=== PATIENT | male | born 1980 | race Caucasian/White ===

== ENCOUNTER → 2016-06-28 | Outpatient (CLI) | payer BC, OTHER ==
[~2016-06-28] VITALS: Ht 198.1 cm; Wt 85.3 kg
[~2016-06-28] MED LIST: ACETAMINOPHEN325 M1 PO; AMBIEN 5 MG TABL5 M1 PO; AMITRIPTYLINE H10 M1 PO; AMITRIPTYLINE H25 M3 PO; COUMADIN 1MG TAB1 M1 PO; COUMADIN 2.5MG2.5 M1 PO; COUMADIN 5 MG TA5 M1 PO; DILAUDID 2 MG TA2 MG PO; DILAUDID 4 MG TA4 M1 PO; ELAVIL PO; ENOXAPARIN100 MG/1 M SUBQ; GENTAMICIN 0.1%15 G2 TOP; IBUPROFEN 800800 M1 PO; JANTOVEN2.5 MG PO; LYRICA 75 MG CA75 MG PO; METHADONE HCL5 MG PO; MULTIVITAMINS PO; NABUMETONE 750750 M1 PO; NOHOMEMEDICATIONS; NORCO 5-325 TA1 EACH PO; NUCYNTA ER100 MG PO; NUCYNTA ER150 MG PO; NUCYNTA ER200 MG PO; NUCYNTA ER250 MG PO; NUCYNTA100 MG PO; NUCYNTA50 MG PO; NUCYNTA75 MG PO; OMEPRAZOLE40 MG PO; OXCARBAZEPINE300 M1 PO; OXYC PO; OXYCOD PO; OXYCODONE PO; OXYCONTIN15 MG PO; PERCOCET 10-321 EACH PO; PERCOCET 5-3251 EACH PO; PERCOCET 7.5-31 EAC1 PO; PERCOCET 7.5-31 EACH PO; PERCOCET PO; RELAFEN750 MG PO; SANTYL OINTMENT30 G1 TP; TRAMADOL 50 MG50 MG PO; TRAZODONE 150150 M1 PO; TRILEPTAL 300300 MG PO; TRILEPTAL150 MG PO; VOLTAREN GEL 1100 G1 TOP; VOLTAREN GEL 1100 G2 TOP; VOLTAREN100 GM TP; WELLBUTRIN XL300 MG PO; XANAX 0.5 MG0.5 M1 PO; XARELTO20 MG PO; ZPAK PO; [UNRECOGNIZED DRUG - OTHER]; [UNRECOGNIZED DRUG - OTHER]; trazadone PO
--- NOTE | ~2016-06-28 | HPC ---
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 He is now about 8 months status post a fairly extensive, definitive surgery at to cover this area. He notes he has healed generally well, though he still has an area with some thin skin that occasionally will start to bleed. He has been able to participate in activities of daily living, he does keep the dressings on the left knee, but he goes to rock climbing twice a week, does treadmill, perhaps 4-5 days a week. He has weaned off of oxycodone, which was fairly low, used 5 mg tablet, averaging 30 in a month. Continued to take 5 mg of methadone b.i.d. and Trileptal 300 mg b.i.d., but using a little topical Voltaren gel p.r.n. Today, he tells me pain is actually fairly well controlled. Rates it at 2/10. Again, primarily in bilateral legs, back, neck, and left knee. PHYSICAL EXAMINATION: Unchanged. A 36-year-old gentleman, BMI is 21.7 kilograms per meter squared. Vital signs are stable as noted in the EMR. Rises from the chair easily. Gait is actually fairly tandem at this point. Again, he has dressing on the left knee. I did not take that down. We reviewed the fact that opiate medications are being used to provide analgesia adequate to support activities of daily living, not attempting to achieve a specific pain score on the 0-10 Visual Analog Scale. The current opiate medications are providing sufficient analgesia to allow the patient to participate in activities of daily living. The patient is not exhibiting any aberrant behavior suggestive of drug diversion. The patient is not having any adverse reactions to medications. The patient is not suffering from daytime somnolence or mental acuity changes. The patient is managing opiate-induced constipation with appropriate hbtn-rny-cdwhwry agents and dietary considerations. The patient was counseled on concern for caution with operating a motor vehicle while using opiate medications. A physical exam was performed and the patient's functional status was evaluated. All patients with back pain were advised against the bed rest greater than 4 days and were advised to return to normal activities. Pain score assessment was noted and the treatment plan was reviewed with the patient. All current medications, both prescribed and OTC were reviewed and reconciled on the electronic medical record. Tobacco screening was accomplished and smoking cessation was advised when indicated. BMI was noted and diet/exercise [address] [address] PAIN MANAGEMENT CONSULTATION Name: NELLY GUTIÉRREZ Room #: REG [place]#: [id number] Admission: 06/28/16 Attend Phys: Kedar Pichardo DO Discharge: Date of : 82 Report #: [id number] modification was recommended for all patients following outside normal parameters. I reviewed with the patient today their responsibilities to safeguard prescription medications, reviewed their responsibility to utilize medications only as prescribed by the physician. They are to seek and receive pain medications only from 1 physician group ( [facility]). They are to use 1 pharmacy and keep the clinic informed if they change pharmacies. Their responsibilities include making followup visits in a timely fashion and to avoid abrupt discontinuation of medication usage. Their responsibilities further include bringing their medications (bottles from the pharmacy with residual pills) to the visit for possible confirmation of pill counts and the patient understands it is their responsibility to submit to random drug screens to ensure both that the medications prescribed are present, and that no other controlled substances are present. All prescriptions provided today were generated electronically. ASSESSMENT: Neuropathic pain, secondary to Ujgimdd-Zashdrrvy-Pahtk syndrome, status post multiple surgical reconstructions with a fairly definitive surgery about 8 months ago to diminish the capillary malformation and cover the knee with skin. He has been stable on methadone 5 mg b.i.d., has weaned off of oxycodone. Today, we talked at length about trying to wean methadone as well. We have elected to continue a prescription for 60 methadone 5 mg tablets to use b.i.d. Since he notes his pain is a little better during the day, as he is busy and is able to distract himself. We have elected to trial using half a tablet in the morning with one at night for about 30 days. If he does well with this, in hopes of a "slow" successful wean, we may even go another second month on half in the morning and one at night and on months #3, we drop to one half tablet b.i.d. I have taken the liberty of writing for 3 months of current medication. His last urine drug screen at last visit, 03/05/2016, was positive for prescribed medications. The patient was discharged in good and stable condition. <ELECTRONICALLY SIGNED> By: Kedar Pichardo DO 07/02/16 0811 [id number] 54 Kedar Pichardo DO /sp
[2016-06-28 09:42] VITALS: BP 155/88
== END | disposition home or self-care (01) ==
LOC: PAIN 07:01
DX: Q87.2 Congenital malformation syndromes predominantly involving limbs (principal)

== ENCOUNTER → 2016-09-16 | Outpatient (CLI) | payer BC, OTHER ==
[~2016-09-16] VITALS: Ht 198.1 cm; Wt 83.9 kg
[~2016-09-16] MED LIST changes: +LYRICA 50 MG50 MG PO
--- NOTE | ~2016-09-16 | HPC ---
[facility] [place] [address] PAIN MANAGEMENT CONSULTATION Name: MARLANELLY M Room #: REG José [facility] [place]#: [id number] Admission: 09/16/16 Attend Phys: Kedar Pichardo DO Discharge: Date of : 82 Report #: [id number] THIS REPORT FOR: //name// CC: [facility] physician/PCP Kedar Pichardo The patient is a very pleasant 36-year-old gentleman well known to the pain clinic, being treated for chronic pain syndrome, left knee. History of "Nhpsdmq-Nbgyoelcj-Nfdef syndrome with capillary malformation of left knee requiring multiple surgeries. Last surgery is now about 1 year out from . This last surgery appears to be definitive. He is healed fairly well. Still has some areas that will occasionally bleed, but he remains quite physically active. Used the dressings on the knee p.r.n. He does rock climbing, works on a treadmill. He returns to pain clinic today. He had weaned off of oxycodone last visit. He was on methadone 5 mg b.i.d., tried to wean down, but one tablet a day had increased pain. No signs or symptoms of opiate withdrawal, simply increasing pain. Again, he returns to pain clinic. He remains quite active. 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 He enjoys rock climbing. He has multiple avocations. He notes chronic pain, burning sensation in the left knee remains problematic, seems to be exacerbated with some activities. PHYSICAL EXAMINATION: Shows a 36-year-old gentleman, BMI is 21.4 kilograms per meter squared. Vital signs stable as noted in the EMR. Alert and oriented to person, place and time, judged to be a reasonable historian. Rises from chair easily. Gait is tandem. Pretty good range of motion of the left knee with flexion to 110 degrees. Skin integument generally intact. The patient did bring in for us today lab results from his most recent physical exam, 06/22/2016. I personally reviewed these studies and compared them to a prior exam from 06/25/2015. He had had an elevated SGPT in 2016. SGPT today is within normal limits. Given use of a sodium channel membrane stabilizing agent (oxcarbazepine), I did want to review his CVA which is normal. There is no evidence of bone marrow suppression. BUN and creatinine are within normal limits at 17 and 0.79 respectively. Does have an elevated alkaline phos on his most recent study. It is 129, just a little over the high standard (reference rate is 30-115), 2016 alk phos was 113. I suspect this is likely coming from the left knee. He does have chronic inflammation. 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 No signs of any other liver issues or other finding suggestive of viral hepatitis. We reviewed the fact that opiate medications are being used to provide analgesia adequate to support activities of daily living, not attempting to achieve a specific pain score on the 0-10 Visual Analog Scale. The current opiate medications are providing sufficient analgesia to allow the patient to participate in activities of daily living. The patient is not exhibiting any [address] [address] PAIN MANAGEMENT CONSULTATION Name: MARLANELLY M Room #: REG CLJosé Miguel [place]#: [id number] Admission: 09/16/16 Attend Phys: Kedar Pichardo DO Discharge: Date of : 82 Report #: [id number] aberrant behavior suggestive of drug diversion. The patient is not having any adverse reactions to medications. The patient is not suffering from daytime somnolence or mental acuity changes. The patient is managing opiate-induced constipation with appropriate oyxr-bbh-dgvbqlb agents and dietary considerations. The patient was counseled on concern for caution with operating a motor vehicle while using opiate medications. A physical exam was performed and the patient's functional status was evaluated. All patients with back pain were advised against the bed rest greater than 4 days and were advised to return to normal activities. Pain score assessment was noted and the treatment plan was reviewed with the patient. All current medications, both prescribed and OTC were reviewed and reconciled on the electronic medical record. Tobacco screening was accomplished and smoking cessation was advised when indicated. BMI was noted and diet/exercise modification was recommended for all patients following outside normal parameters. I reviewed with the patient today their responsibilities to safeguard prescription medications, reviewed their responsibility to utilize medications only as prescribed by the physician. They are to seek and receive pain medications only from 1 physician group ( [facility]). They are to use 1 pharmacy and keep the clinic informed if they change pharmacies. Their responsibilities include making followup visits in a timely fashion and to avoid abrupt discontinuation of medication usage. Their responsibilities further include bringing their medications (bottles from the pharmacy with residual pills) to the visit for possible confirmation of pill counts and the patient understands it is their responsibility to submit to random drug screens to ensure both that the medications prescribed are present, and that no other controlled substances are present. All prescriptions provided today were generated electronically. ASSESSMENT: Chronic knee pain (left knee) secondary to Lgxgijx-Kxhhtjnzw-Ytupi syndrome with multiple surgeries, requiring complex medication management, neuropathic pain component. Pain has a burning electric quality. Last urine drug screen was positive for prescribed medications. RECOMMENDATION: 1. Continue methadone 5 mg b.i.d., try and wean as able, continue sodium channel membrane stabilizing agent, oxcarbazepine 300 mg b.i.d. I have taken the liberty of giving the patient samples of Lyrica 50 mg once a day to start at night. If this affords synergistic relief of neuropathic pain with the oxcarbazepine, I have also provided him prescription for Lyrica 50 mg 1-2 tablets at bedtime, 60 tablets with 2 refills. He has in the past failed gabapentin due to cognitive impairment and swelling of lower extremity. 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 Dispensed 120 g with 6 refills. This prescription was sent to the start pharmacy for formulation. The patient was discharged in good and stable condition after prolonged visit, seen from approximately 14:23 to 14:50. Greater than 50% of this 25+ minute visit was spent counseling the patient. <ELECTRONICALLY SIGNED> By: Kedar Pichardo DO 09/17/16 0704 1535 0312 Kedar Pichardo DO /nt
[2016-09-16 14:22] VITALS: BP 133/75
== END ==
LOC: PAIN 07:12
DX: G89.4 Chronic pain syndrome (principal); Q87.2 Congenital malformation syndromes predominantly involving limbs

== ENCOUNTER → 2016-12-13 | Outpatient (CLI) | payer BC, OTHER ==
[~2016-12-13] VITALS: Ht 198.1 cm; Wt 83.5 kg
[2016-12-13 08:07] VITALS: BP 132/66
== END | disposition home or self-care (01) ==
LOC: PAIN 06:32
DX: M25.562 Pain in left knee (principal); G89.29 Other chronic pain; Q87.2 Congenital malformation syndromes predominantly involving limbs; F11.20 Opioid dependence, uncomplicated; Z98.890 Other specified postprocedural states; Z88.2 Allergy status to sulfonamides

== ENCOUNTER → 2017-02-24 | Outpatient (CLI) | payer BC, OTHER ==
[~2017-02-24] VITALS: Ht 198.1 cm; Wt 84.8 kg
--- NOTE | ~2017-02-24 | HPC ---
[facility] [place] [address] [place] [address] PAIN MANAGEMENT CONSULTATION Name: NELLY GUTIÉRREZ Room #: REG [facility] [place].#: [id number] Admission: 02/24/17 Attend Phys: Kedar Pichardo DO Discharge: Date of : 82 Report #: [id number] THIS REPORT FOR: //name// CC: [facility] physician/PCP Kedar Pichardo This patient is a very pleasant 36-year-old gentleman, being treated for Wcmfxmu-Pfzxkchir-Guxmo syndrome affecting left knee, left knee chronic pain, neuropathic component, requiring high-risk complex medication management. Last seen in pain clinic on 12/13/2016, continued on methadone 5 mg b.i.d. We added Nucynta 50 mg p.r.n. pain, 100 tablets for 90 days. Continue Trileptal 300 mg b.i.d. Last urine drug screen on 03/05/2016 was positive for prescribed medications. He returns to pain clinic today noting medications are providing sufficient analgesia to participate in activities of daily living. He has continued to do rock climbing and bicycling. Notes pain is generally controlled, thinks that the Nucynta helps with p.r.n. pain. PHYSICAL EXAMINATION: Shows pleasant 36-year-old gentleman, BMI is 21.6 kilograms per meter squared. Vital signs stable as noted in the EMR. Rises from chair easily. Gait is tandem. Nominally antalgic favoring the left leg, has not had any bleeding in that left knee now for nearly a year. We reviewed the fact that opiate medications are being used to provide analgesia adequate to support activities of daily living, not attempting to achieve a specific pain score on the 0-10 Visual Analog Scale. The current opiate medications are providing sufficient analgesia to allow the patient to participate in activities of daily living. The patient is not exhibiting any aberrant behavior suggestive of drug diversion. The patient is not having any adverse reactions to medications. The patient is not suffering from daytime somnolence or mental acuity changes. The patient is managing opiate-induced constipation with appropriate uhoc-vnj-uurvqfs agents and dietary considerations. The patient was counseled on concern for caution with operating a motor vehicle while using opiate medications. A physical exam was performed and the patient's functional status was evaluated. All patients with back pain were advised against the bed rest greater than 4 days and were advised to return to normal activities. Pain score assessment was noted and the treatment plan was reviewed with the patient. All current medications, both prescribed and OTC were reviewed and reconciled on the electronic medical record. Tobacco screening was accomplished and smoking cessation was advised when indicated. BMI was noted and diet/exercise modification was recommended for all patients [place] [address] PAIN MANAGEMENT CONSULTATION Name: NELLY GUTIÉRREZ Room #: REG ILIANA [place]#: [id number] Admission: 02/24/17 Attend Phys: Kedar Pichardo DO Discharge: Date of : 82 Report #: [id number] I reviewed with the patient today their responsibilities to safeguard prescription medications, reviewed their responsibility to utilize medications only as prescribed by the physician. They are to seek and receive pain medications only from 1 physician group ([facility]). They are to use 1 pharmacy and keep the clinic informed if they change pharmacies. Their responsibilities include making followup visits in a timely fashion and to avoid abrupt discontinuation of medication usage. Their responsibilities further include bringing their medications (bottles from the pharmacy with residual pills) to the visit for possible confirmation of pill counts and the patient understands it is their responsibility to submit to random drug screens to ensure both that the medications prescribed are present, and that no other controlled substances are present. All prescriptions provided today were generated electronically. ASSESSMENT: Chronic pain syndrome, neuropathic pain component, left knee, status post multiple surgeries because of Ueytcdc-Rpqparyml-Mdjqp venous malformation, stable on baseline medications presently. RECOMMENDATION: Continue methadone 5 mg b.i.d., Trileptal, unchanged 300 mg b.i.d. and continue Nucynta 50 mg 1 tablet p.r.n. pain q.4-6 hours., limit 100 tablets for 90 days. I have taken the liberty of writing for 3 months of methadone and a single Nucynta prescription. Follow up in 3 months for reevaluation, earlier if needed. <ELECTRONICALLY SIGNED> By: Kedar Pichardo DO 02/25/17 1036 1234 1022 Kedar Pichardo DO /nt
[2017-02-24 09:51] VITALS: BP 123/79
== END | disposition home or self-care (01) ==
LOC: PAIN 06:28
DX: G89.4 Chronic pain syndrome (principal); G62.9 Polyneuropathy, unspecified; Z98.890 Other specified postprocedural states; Q87.2 Congenital malformation syndromes predominantly involving limbs; Z79.899 Other long term (current) drug therapy

== ENCOUNTER → 2017-05-19 | Outpatient (CLI) | payer BC, OTHER ==
[~2017-05-19] VITALS: Ht 198.1 cm; Wt 83.9 kg
--- NOTE | ~2017-05-19 | HPC ---
[facility] [place] [address] PAIN MANAGEMENT CONSULTATION Name: GUTIÉRREZNELLY M [facility] #: [facility] [id number] Admission: 05/19/17 Attend Phys: Kedar Pichardo DO Discharge: Date of : 82 Report #: [id number] THIS REPORT FOR: //name// CC: [facility] physician/PCP Kedar Pichardo PAIN CLINIC NOTE HISTORY OF PRESENT ILLNESS: The patient is a very pleasant 37-year-old gentleman long known to the pain clinic, being treated for chronic left knee pain, history of Hhxdrtw-Ldkexenrz-Gaiqu syndrome. He has ongoing neuropathic pain, chronic pain syndrome requiring high risk complex medication management. CURRENT MEDICATIONS: Including methadone 5 mg b.i.d., Nucynta 50 mg, 100 tablets for 90 days and Trileptal 300 mg b.i.d. have been efficacious. He is starting having increasing burning dysesthesia in the left leg from about the knee down. We spent a prolonged visit today, greater than 25 minutes was spent counseling the patient, reviewing therapeutic options and discussing current pain concerns. The patient remains quite physically active. 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 He does note that the neuropathic pain in his left leg is getting more problematic. He rates his pain 5 on a VAS. Last random drug screen 03/05/2016 was positive for prescribed medications. PHYSICAL EXAMINATION: Shows a pleasant 37-year-old gentleman, BMI is 29.4 kilograms per meter squared. Vital signs stable as noted in the EMR. Rises from chair using armrest. Gait is tandem. Lower extremity strength is preserved, dysesthesia left knee down. Fortunately, the prior nonhealing vascular lesions on the knee are resolved. He has significant scarring, but no open wounds. We reviewed the fact that opiate medications are being used to provide analgesia adequate to support activities of daily living, not attempting to achieve a specific pain score on the 0-10 Visual Analog Scale. The current opiate medications are providing sufficient analgesia to allow the patient to participate in activities of daily living. The patient is not exhibiting any aberrant behavior suggestive of drug diversion. The patient is not having any adverse reactions to medications. The patient is not suffering from daytime somnolence or mental acuity changes. The patient is managing opiate-induced constipation with appropriate ilpm-gia-fclhxnf agents and dietary considerations. The patient was counseled on concern for caution with operating a motor vehicle while using opiate medications. A physical exam was performed and the patient's [place] [address] PAIN MANAGEMENT CONSULTATION Name: NELLY GUTIÉRREZ Room #: REG [facility] [place].#: [id number] Admission: 05/19/17 Attend Phys: Kedar Pichardo DO Discharge: Date of : 82 Report #: [id number] All patients with back pain were advised against the bed rest greater than 4 days and were advised to return to normal activities. Pain score assessment was noted and the treatment plan was reviewed with the patient. All current medications, both prescribed and OTC were reviewed and reconciled on the electronic medical record. Tobacco screening was accomplished and smoking cessation was advised when indicated. BMI was noted and diet/exercise modification was recommended for all patients following outside normal parameters. I reviewed with the patient today their responsibilities to safeguard prescription medications, reviewed their responsibility to utilize medications only as prescribed by the physician. They are to seek and receive pain medications only from 1 physician group ( [facility]). They are to use 1 pharmacy and keep the clinic informed if they change pharmacies. Their responsibilities include making followup visits in a timely fashion and to avoid abrupt discontinuation of medication usage. Their responsibilities further include bringing their medications (bottles from the pharmacy with residual pills) to the visit for possible confirmation of pill counts and the patient understands it is their responsibility to submit to random drug screens to ensure both that the medications prescribed are present, and that no other controlled substances are present. All prescriptions provided today were generated electronically. ASSESSMENT: Neuropathic pain requiring high risk complex medication management. RECOMMENDATIONS: 1. We renewed opiate consent to treat contract today. 2. We reviewed the opiate risk assessment tool and functional impact score. Risk assessment tool scores the patient in the low risk category. Functional assessment tool notes pain impact . 3. Repeat random drug screen today (buccal). 4. Continue Nucynta 50 mg 1 tablet 2-3 times a day, limit 100 tablets for 90 days. 5. Continue Trileptal 300 mg b.i.d. We discussed adding calcium channel membrane stabilizing agent though the patient has failed gabapentin and Lyrica in the past, simply due to lack of efficacy; hence, we have elected to simply continue with maximal therapeutic dose of sodium channel membrane stabilizing agent, Trileptal at 300 mg b.i.d. 6. We will continue methadone 5 mg tablet, slightly increasing overall dose. I have taken the liberty of writing for 90 tablets for 30 days. We will have him simply start taking 1 tablet in the morning and one and a half at night for about 10 days. If this provides adequate efficacy, we will continue. If it does not provide adequate efficacy, we will increase to 1 full 5 mg tablet t.i.d. If in 4 weeks, this does not provide adequate efficacy, I told him to bring back the prescriptions. We will go back to methadone 5 mg b.i.d. and increase the p.r.n. Nucynta. [facility] [address] [place] [address] PAIN MANAGEMENT CONSULTATION Name: NELLY GUTIÉRREZ [facility] [id number] Admission: 05/19/17 Attend Phys: Kedar Pichardo DO Discharge: Date of : 82 Report #: [id number] Ultimately, the patient was discharged in good and stable condition today with 3 months of current medication, noting the 50% increase in methadone. Discharged in good and stable condition after a 25+-minute visit, greater than 50% of time spent counseling the patient. <ELECTRONICALLY SIGNED> By: Kedar Pichardo DO 05/20/17 0650 1306 2250 Kedar Pichardo DO /nt
[2017-05-19 08:10] VITALS: BP 109/76
== END ==
LOC: PAIN 06:58
DX: G89.4 Chronic pain syndrome (principal); M25.562 Pain in left knee; M79.2 Neuralgia and neuritis, unspecified; Z79.899 Other long term (current) drug therapy

== ENCOUNTER → 2017-12-13 | Outpatient (CLI) | payer OTHER ==
[~2017-12-13] VITALS: Ht 198.1 cm; Wt 81.6 kg
--- NOTE | ~2017-12-13 | HPC ---
[facility] [place] [address] PAIN MANAGEMENT CONSULTATION Name: NELLY GUTIÉRREZ Room #: REG [facility].#: [id number] Admission: 12/13/17 Attend Phys: Francesco Pichardo DO Discharge: Date of : 84 Report #: [id number] THIS REPORT FOR: //name// CC: FAM physician/PCP Elissa Pichardo DATE OF SERVICE: 12/13/2017 REFERRING PHYSICIAN: Elissa Patel MD CHIEF COMPLAINT: Left knee pain. HISTORY OF PRESENT ILLNESS: As you know, the patient is a 37-year-old male, followed by my partner, Dr. Kedar Pichardo for a very long period of time for chronic left knee pain secondary to his diagnosis of Ikkkdba-Jbnmhxebl-Drzuu syndrome. The patient apparently has had multiple surgeries on this area to address his ongoing left knee symptoms. The patient has been started on medication management in the form of methadone 5 mg 3 times a day, also receiving oxycodone/acetaminophen 4 times a day for pain control. The patient states the combination of medications is working well. The patient was previously on Nucynta, but due to the cost of medication, he can no longer afford that treatment, there were changes made while he was being treated at our [facility] facilities. He has changed his care back to [facility] and has returned requesting refill on medications. He denies side effects of somnolence, decrease in mental acuity, disorientation and confusion with the use of medication. He returns requesting refills for the next 2 months. ALLERGIES: SULFA and GADOLINIUM. CURRENT MEDICATIONS: Methadone 5 mg 3 times a day, oxycodone/acetaminophen 5/325 one tab every 6 hours p.r.n. for pain, Trileptal 300 mg twice a day, omeprazole 40 mg per day, Xarelto 20 mg per day, and multivitamin 1 tab per day. SOCIAL HISTORY: The patient reports he is a nonsmoker. Denies IV or illicit drug use. He is an avid rock climber. He works in [employer]. He is unaccompanied today. IMAGING: No new imaging available. PHYSICAL EXAMINATION: VITAL SIGNS: Blood pressure 120/75, pulse 64, respiratory rate 14 and unlabored, the patient is 95% on room air, height 6 feet 6 inches tall, weight 180 pounds, BMI calculated 20.8. GENERAL: Well-developed, well-nourished, well-hydrated, thin 37-year-old male, appearing his stated age, placing current pain score at around 3/10. [place] [address] PAIN MANAGEMENT CONSULTATION Name: MARLANELLY Bernadette Room #: REG [facility].#: [id number] Admission: 12/13/17 Attend Phys: Francesco Pichardo DO Discharge: Date of : 82 Report #: [id number] HEENT: Normocephalic, atraumatic. Pupils are equal, round, and reactive to light. Extraocular muscles are intact. NEUROLOGIC: Speech fluent. The patient deemed a good historian. LUNGS: Clear, no wheeze, rhonchi, or rales. CARDIOVASCULAR: Regular. No appreciable gallop, no rub. ABDOMEN: Soft, nontender, nondistended. EXTREMITIES: Show no clubbing, no cyanosis. The patient has excellent range of motion of the lower extremities bilaterally. Pain is elicited with active and passive range of motion of left knee, negative right. Pain is also elicited with ambulation and weightbearing. There is mild changes in his gait. ASSESSMENT: 1. Chronic left knee pain. 2. Trrjkbj-Jfqvwayze-Sqnng syndrome. 3. Chronic neuropathic pain. PLAN: 1. The patient has returned today in followup visit for medication management. He feels medications are working beneficially for pain control. The patient has been started on methadone and oxycodone by my partner, Dr. Kedar Pichardo; this does appear to be appropriate for this patient's case. He can tolerate the medication, the cost of medication is not excessively high as the Nucynta was and the patient reports good efficacy with its use. He has requested to continue the therapy at current medication dosing. We have discussed with the patient the concerns we have with chronic opioid medication, the patient is amenable. We reviewed his recent drug screen obtained from [facility], it does appear to be appropriate. We have agreed to continue the patient on his medication. 2. The patient was provided a prescription of methadone 5 mg dose 1 tab p.o. t.i.d., #90, release today and 4 weeks from today. Total dosing of methadone based on CDC's calculation is 60 morphine equivalents. 3. The patient was provided a prescription of oxycodone/acetaminophen 5/325 one tab p.o. q.6 hours p.r.n. for pain, #120, which calculates to 30 mg morphine equivalents a day, totalling 90 morphine equivalents per day on current dosing. 4. We will see the patient back in followup visit in 2 months for medication therapy. By: [id number] Francesco Pichardo, /nt
[2017-12-13 08:05] VITALS: BP 120/75
== END ==
LOC: PAIN 07:47
DX: M25.562 Pain in left knee (principal); M79.2 Neuralgia and neuritis, unspecified; G89.29 Other chronic pain

== ENCOUNTER → 2018-04-26 | Outpatient (CLI) | payer OTHER ==
[~2018-04-26] VITALS: Ht 198.1 cm; Wt 84.8 kg
[~2018-04-26] MED LIST changes: +TRILEPTAL300 MG PO
--- NOTE | ~2018-04-26 | HPC ---
[facility] [place] [address] PAIN MANAGEMENT CONSULTATION Name: NELLY GUTIÉRREZ Room #: REG [facility].#: [id number] Admission: 04/26/18 Attend Phys: Francesco Pichardo DO Discharge: Date of : 84 Report #: [id number] THIS REPORT FOR: //name// CC: FAM physician/PCP Elissa Pichardo DATE OF SERVICE: 04/26/2018 REFERRING PHYSICIAN: Elissa Patel M.D. CHIEF COMPLAINT: Left knee pain. HISTORY OF PRESENT ILLNESS: As you know, the patient is a 37-year-old male, recently followed by my partner, Dr. Kedar Pichardo for opioid medication management for left knee pain secondary to the diagnosis of Nrwwidn-Dobibilqc-Rylth syndrome. The patient has had multiple surgeries involving the left knee, without significant pain improvement. The patient is currently being evaluated for possible re-grafting of a lesion of the left knee that is not healing well. He is being evaluated by the plastic surgeon. He is not sure he wishes to undergo this procedure as it is quite time consuming and painful. He returns today in followup visit for medication management, stating the combination of medications work well for pain control. He is denying any side effects to medication including somnolence, decreased mental acuity, disorientation, confusion, mental slowing or constipation. The patient states he has been in his normal state of health. He is placing his pain score today at around 5/10. ALLERGIES: SULFA AND GADOLINIUM. CURRENT MEDICATIONS: Methadone 5 mg 3 times a day, Percocet 5/325 one tab every 8 hours p.r.n. for pain, Trileptal 300 mg twice a day, omeprazole 40 mg per day, Xarelto 20 mg per day and multivitamin 1 tab per day. SOCIAL HISTORY: The patient reports himself as a nonsmoker. He denies IV or illicit drug use. He is an avid rock climber. He is working, not receiving workmen's compensation, unaccompanied today. IMAGING: No new imaging available. DRUG MONITORING PROGRAM: We have taken the liberty of pulling K-TRACS and MO-TRACS data. It does appear the patient is filling his medications appropriately. There does not appear to be any concerning entries. PHYSICAL EXAMINATION: VITAL SIGNS: Blood pressure 124/82, pulse 62 and respiratory rate 14 and [facility] [address] [place] [address] PAIN MANAGEMENT CONSULTATION Name: NELLY GUTIÉRREZ [id number] Admission: 04/26/18 Attend Phys: Francesco Pichardo DO Discharge: Date of : 82 Report #: [id number] unlabored. The patient is 100% on room air. Height 6 feet 6 inches tall, weight 187 pounds and BMI calculated at 21.6. GENERAL: Well-developed, well-nourished and well-hydrated 37-year-old male, appearing his stated age. Pain is rated today around 5/10. HEENT: Normocephalic, atraumatic. Pupils equal, round and reactive to light. Extraocular muscles are intact. Speech fluent. The patient deemed an excellent historian. LUNGS: Clear. No wheeze, rhonchi or rales. CARDIOVASCULAR: Regular. No appreciable gallop, no rub. EXTREMITIES: Show no clubbing, no cyanosis, no edema. MUSCULOSKELETAL: The patient's range of motion of the lower extremities is equal and symmetrical. He does have pain elicited with active and passive range of motion of the left knee when compared to the right. Muscle bulk and tone are symmetrical when comparing left lower extremity to right. There are some noted surgical changes over the left knee and an open wound that is bandaged currently. Gait mildly antalgic, favoring left lower extremity over the right. ASSESSMENT: 1. Chronic left knee pain. 2. Wgpqrha-Cqggsqzrp-Rmglo syndrome. 3. Opioid dependency. 4. Chronic intractable pain. PLAN: 1. The patient returns today in followup visit requesting refill on medications. He feels medications are working beneficially for pain control. The patient is being evaluated currently for possible re-grafting of skin over the wound on his left knee. He is considering his options. He is discussing this with his plastic surgeon at . He is yet to make a decision on whether or not he wishes to trial conservative treatment or move forward with surgical option. I did advise the patient if he did choose to move forward with surgical option, we would recommend weaning off his Percocet at minimum prior to surgery. Two weeks prior to surgery would be most effective. That would reduce his tolerance to opioids and improve his analgesic benefit. The patient will consider this as an option. If he does choose to move forward with surgery, he is amenable to weaning off the Percocet 2 weeks prior to procedure, allowing for less opioid tolerance. 2. The patient was provided prescription of methadone 5 mg dose 1 tab p.o. tab, #90, releases of today and 4 weeks from today, 3 months' worth of medication. He is advised to continue the medication as directed for his baseline pain control. 3. The patient was provided a prescription of Percocet 5/325 one tab p.o. q. 8 hours p.r.n. for pain, #90, releasing today and 4 weeks from today, 2 months' worth of medication. The patient was advised, as indicated above, if he does move to surgery, to wean off the Percocet before surgery approximately 2 weeks prior. If he is not planning surgery, continue the oxycodone as necessary. [address] [address] PAIN MANAGEMENT CONSULTATION Name: GUTIÉRREZNELLY Bernadette [id number] Admission: 04/26/18 Attend Phys: Francesco Pichardo DO Discharge: Date of : 84 Report #: [id number] 4. We reviewed the fact that opiate medications are being used to provide analgesia adequate to support activities of daily living, not attempting to achieve a specific pain score on the 0-10 Visual Analog Scale. The current opiate medications are providing sufficient analgesia to allow the patient to participate in activities of daily living. The patient is not exhibiting any aberrant behavior suggestive of drug diversion. The patient is not having any adverse reactions to medications. The patient is not suffering from daytime somnolence or mental acuity changes. The patient is managing opiate-induced constipation with appropriate glau-iav-dgzvxky agents and dietary considerations. The patient was counseled on concern for caution with operating a motor vehicle while using opiate medications. A physical exam was performed and the patient's functional status was evaluated. All patients with back pain were advised against the bed rest greater than 4 days and were advised to return to normal activities. Pain score assessment was noted and the treatment plan was reviewed with the patient. All current medications, both prescribed and OTC were reviewed and reconciled on the electronic medical record. Tobacco screening was accomplished and smoking cessation was advised when indicated. BMI was noted and diet/exercise modification was recommended for all patients following outside normal parameters. I reviewed with the patient today their responsibilities to safeguard prescription medications, reviewed their responsibility to utilize medications only as prescribed by the physician. They are to seek and receive pain medications only from 1 physician group ( [facility]). They are to use 1 pharmacy and keep the clinic informed if they change pharmacies. Their responsibilities include making followup visits in a timely fashion and to avoid abrupt discontinuation of medication usage. Their responsibilities further include bringing their medications (bottles from the pharmacy with residual pills) to the visit for possible confirmation of pill counts and the patient understands it is their responsibility to submit to random drug screens to ensure both that the medications prescribed are present, and that no other controlled substances are present. All prescriptions provided today were generated electronically. 5. The patient was provided prescription of Trileptal 300 mg dose 1 tab p.o. b.i.d., #60 with 5 refills, 6 months' worth of medication. 6. We will see the patient back in followup visit in 2 months for medication management. He can return earlier if he needs to make adjustments in medication based on surgical consideration. <ELECTRONICALLY SIGNED> By: Francesco Pichardo DO 04/26/18 [id number] Francesco Pichardo DO /nt
[2018-04-26 08:05] VITALS: BP 124/82
== END ==
LOC: PAIN 05:40
DX: M25.562 Pain in left knee (principal); G89.4 Chronic pain syndrome; F11.20 Opioid dependence, uncomplicated; Q87.2 Congenital malformation syndromes predominantly involving limbs

== ENCOUNTER → 2018-06-14 | Outpatient (CLI) | payer OTHER ==
[~2018-06-14] VITALS: Ht 198.1 cm; Wt 88.2 kg
--- NOTE | ~2018-06-14 | HPC ---
[facility] [place] [address] PAIN MANAGEMENT CONSULTATION Name: NELLY GUTIÉRREZ [id number] Admission: 06/14/18 Attend Phys: Francesco Pichardo DO Discharge: Date of : 84 Report #: [id number] THIS REPORT FOR: //name// CC: Elissa Pichardo DATE OF SERVICE: 06/14/2018 REFERRING PHYSICIAN: Elissa Patel MD CHIEF COMPLAINT: Left knee pain. HISTORY OF PRESENT ILLNESS: As you know, the patient is a 38-year-old male who returns today in followup visit for adjustments in medication therapy. He feels he is becoming tolerant to his combination of methadone and oxycodone. This may be the case as the patient has been on this since 2014. We have discussed this in the past. There is always need to rotate medications periodically to adjust for tolerance and potential side effects. He returns to make adjustments in medication today in hopes of improving his pain score of 5/10. He remains on Xarelto, precluding us from providing injection therapies. ALLERGIES: SULFA, GADOLINIUM. CURRENT MEDICATIONS: Methadone 5 mg 3 times a day, Percocet 5/325 one tab every 8 hours p.r.n. for pain, Trileptal 300 mg twice a day, omeprazole 40 mg once a day, Xarelto 20 mg once a day, multivitamin 1 tab per day. SOCIAL HISTORY: The patient reports himself a nonsmoker, denies IV or illicit drug use. He is an avid rock climber. He is working, not receiving workmen's compensation. He has just recently changed jobs. He is unaccompanied today. IMAGING: No new imaging available. PHYSICAL EXAMINATION: VITAL SIGNS: Blood pressure 159/78, pulse is 70, respiratory rate 16 and unlabored. The patient is 100% on room air. Height 6 feet 6 inches tall, weight 194.4 pounds, BMI calculated 22.5. GENERAL: Well-developed, well-nourished, well-hydrated 38-year-old male appearing stated age, placing current pain score 5/10. HEENT: Normocephalic, atraumatic. Pupils equal, round, reactive to light. Extraocular muscles are intact. Sclerae nonicteric without injection. NEUROLOGIC: Cranial nerves 2 through 12 grossly intact. EXTREMITIES: Show no clubbing, no cyanosis, no edema. MUSCULOSKELETAL: The patient's range of motion again on the left is mildly restricted. He does have pain elicited with active and passive range of motion [address] [address] PAIN MANAGEMENT CONSULTATION Name: NELLY GUTIÉRREZ Bernadette Room #: REG [facility]#: [id number] Admission: 06/14/18 Attend Phys: Francesco Pichardo DO Discharge: Date of : 84 Report #: [id number] of left knee. Muscle bulk and tone appears symmetrical in comparing left lower extremity to the right. Mildly antalgic gait. There is once again noted an open wound that is bandaged currently over the left knee. ASSESSMENT: 1. Chronic left knee pain. 2. Ikxgrkw-Mvrpqbbpu-Ymuil syndrome. 3. Opioid dependency. 4. Opioid tolerance. 5. Chronic intractable pain. PLAN: 1. The patient has returned today in followup visit indicating concern of developing tolerance to his methadone and Percocet combination medication. The patient indicates his pain has begun to increase though he has not really changed much in his activities. He is wondering whether or not that he may be experiencing some tolerance. There is a strong possibility is as he has been on this medication since 2014. I would recommend rotation of medication away from methadone and Percocet and shift over to Nucynta both the ER and IR version, this will provide the patient with opioid analgesic benefit along with improvement in pain utilizing the descending pain pathway through norepinephrine reuptake inhibition. The patient was amenable. 2. The patient will discontinue his methadone in place will use Nucynta ER 100 mg tab 1 tab p.o. b.i.d. I have given the patient #60 tablets with no refills. This is going to be a trial over the next 3 weeks. If this is effective, we will continue the medication. If he has side effects or concerns with medications, we may adjust further. 3. The patient was provided prescription of Nucynta 50 mg dose 1 tab p.o. t.i.d. p.r.n. pain. I have given the patient #90 tablets. This will take the place of his Percocet. He will utilize this medication only when pain is intolerable, not to rely on this medication prophylactically. We will provide the patient with 90 tablets a month worth of medication with plans to see him back in 3 weeks to evaluate efficacy. 5. We will see the patient back in followup visit in 3 weeks. This will give us a trial of the Nucynta medications in hopes of improving the pain the patient is experiencing and potentially begin to reduce his tolerance to traditional opioids. By: 1230 [id number] Francesco Pichardo DO /nt
[2018-06-14 08:24] VITALS: BP 159/78
--- NOTE | 2018-06-14 08:38 | NUR ---
Pain Clinic Assessment: 1. History of Osteoarthritis: Left Lower Extremity Right Lower Extremity History of Rheumatoid Arthritis: Not Applicable 2. Height: 6 ft. 6 in. 198.1 cm. Weight: 194.4 lb. oz. 88.179 kg. Patient's BMI: 22.5 3. Vital Signs: BP: 159/78 Pulse: 70 Resp: 16 Temp: 02 Sat: 100 ECG Mon: 4. Pain Intensity: 5 5. Fall Risk: Dizziness: N Needs help standing or walking: N Fallen in the last 3 months: N Fall risk comments: 6. Patient on Blood Thinner: XARELTO 7. History of Hypertension: N 8. Opioid Therapy greater than 6 weeks: Y Opiate Contract Signed: 12/08/15 9. Risk Assessment Tool Provided: 0 LOW RISK 10. Functional Assessment Tool: 11. Recreational Drug Use: Never Drug Type: Tobacco Use: Never Smoker Tobacco Type: Amount or Packs/day: How Many Years: Alcohol Use: No Frequency: Quant:
== END ==
LOC: PAIN 07:08
DX: M25.562 Pain in left knee (principal); G89.4 Chronic pain syndrome; F11.20 Opioid dependence, uncomplicated; Q87.2 Congenital malformation syndromes predominantly involving limbs; Z79.899 Other long term (current) drug therapy

== ENCOUNTER → 2018-08-01 | Outpatient (CLI) | payer BC ==
[~2018-08-01] VITALS: Ht 198.1 cm; Wt 84.8 kg
--- NOTE | ~2018-08-01 | HPC ---
[facility] [address] [place] [address] PAIN MANAGEMENT CONSULTATION Name: MARLANELLY Bernadette Room #: REG [facility] [place].#: [id number] Admission: 08/01/18 ������������������ Attend Phys: Francesco Pichardo DO Discharge: ������������������ Date of : 84 Report #: [id number] THIS REPORT FOR: //name// CC: Elissa Pichardo DATE OF SERVICE: 08/01/2018 CHIEF COMPLAINT: Left knee pain. HISTORY OF PRESENT ILLNESS: As you know, the patient is a very pleasant 38-year-old male returning in followup visit for medication management. The patient recently has changed insurance and wishes to return back to the more effective treatment, which was Nucynta ER 100 mg 3 times a day along with Nucynta IR 75 mg 3 times a day p.r.n. pain. He states he was doing better overall. His pain was improved. He was not having any cognitive dysfunction or bowel dysfunction that he has seen with the combination of methadone and Nucynta. He wishes to return to the previous treatment, which was most effective for him. He places pain today at a level of 5/10, states the pain he is experiencing is burning, aching in sensation, exacerbated with activity, standing for long periods of time, walking any long distances, improves with the Nucynta ER/IR combination. He returns today requesting adjustments back to his original dosing, which he found most effective. ALLERGIES: SULFA, GADOLINIUM. CURRENT MEDICATIONS: Methadone 5 mg twice a day, Percocet 5/325 one tab every 8 hours p.r.n. for pain, Trileptal 300 mg twice a day, omeprazole 40 mg once a day, Xarelto 20 mg once a day, multivitamin 1 tab per day, Nucynta 75 mg p.r.n. pain. SOCIAL HISTORY: The patient reports himself a nonsmoker. Denies IV or illicit drug use. He is an avid rock climber. He is working, not receiving workmen's compensation, unaccompanied today. IMAGING: No new imaging available. PHYSICAL EXAMINATION: VITAL SIGNS: Blood pressure 129/88, pulse 68, respiratory rate 16 and unlabored. The patient is 98% on room air, height 6 feet 6 inches tall, weight 187 pounds, BMI calculated 21.6. GENERAL: Well-developed, well-nourished, well-hydrated, thin 38-year-old male, appearing stated age, placing current pain score at around 5/10. HEENT: Normocephalic, atraumatic. Pupils equal, round, reactive to light. EXTREMITIES: Show no clubbing, no cyanosis[place] [address] PAIN MANAGEMENT CONSULTATION Name: NELLY GUTIÉRREZ Room #: REG [facility] Norma#: [id number] Admission: 08/01/18 ������������������ Attend Phys: Francesco Pichardo DO Discharge: ������������������ Date of : 82 Report #: [id number] MUSCULOSKELETAL: Range of motion of the left lower extremity is mildly restricted from the knee standpoint. He does not have any laxity of the knee itself. Pain is elicited with active and passive range of motion of the knee. Muscle bulk and tone appears symmetrical in comparing left lower extremity to right, mild antalgic gait favoring the left knee. ASSESSMENT: 1. Chronic left knee pain. 2. Zomqvnm-Rclgtkocx-Vkuym syndrome. 3. Opioid dependency. 4. Opioid intolerance. 5. Chronic intractable pain. PLAN: 1. The patient returns today in followup visit indicating side effects to the methadone and Nucynta therapy. He is experiencing dysphoric affects making it difficult for him to work. He has had to reduce the dose, which led to increasing pain. This is not a favorable treatment option for him. We made the adjustments per his third constitution party payer request as they were unwilling to cover the more effective treatment option, which was the combination of Nucynta ER and Nucynta IR. He returns requesting adjustments back to the original more effective treatment option. He does appear to be doing poorly today based on our conversation and his level of pain indicating that the methadone-Nucynta therapy is ineffective. He wishes to make adjustments and I feel that is appropriate. 2. The patient was provided prescription of Nucynta ER 100 mg dose 1 tab p.o. t.i.d. I have given the patient #90 tablets, releasing today, 4 weeks from today, 8 weeks from today, 3 months' worth of medication. The patient did very well with this medication, had no side effects and was able to participate in all activities of daily living and his job at the [employer]. 3. The patient was provided prescription of Nucynta IR 75 mg dose 1 tab p.o. t.i.d., #90, releasing today, 4 weeks from today, 8 weeks from today, 3 months' worth of medication. We reviewed the fact that opiate medications are being used to provide analgesia adequate to support activities of daily living, not attempting to achieve a specific pain score on the 0-10 Visual Analog Scale. The current opiate medications are providing sufficient analgesia to allow the patient to participate in activities of daily living. The patient is not exhibiting any aberrant behavior suggestive of drug diversion. The patient is not having any adverse reactions to medications. The patient is not suffering from daytime somnolence or mental acuity changes. The patient is managing opiate-induced constipation with appropriate xnge-veu-amcglrx agents and dietary considerations. The patient was counseled on concern for caution with operating [facility] [address] [place] [address] PAIN MANAGEMENT CONSULTATION Name: NELLY GUTIÉRREZ Room #: REG [facility].#: [id number] Admission: 08/01/18 ������������������ Attend Phys: Francesco Pichardo DO Discharge: ������������������ Date of : 82 Report #: [id number] a motor vehicle while using opiate medications. A physical exam was performed and the patient's functional status was evaluated. All patients with back pain were advised against the bed rest greater than 4 days and were advised to return to normal activities. Pain score assessment was noted and the treatment plan was reviewed with the patient. All current medications, both prescribed and OTC were reviewed and reconciled on the electronic medical record. Tobacco screening was accomplished and smoking cessation was advised when indicated. BMI was noted and diet/exercise modification was recommended for all patients following outside normal parameters. I reviewed with the patient today their responsibilities to safeguard prescription medications, reviewed their responsibility to utilize medications only as prescribed by the physician. They are to seek and receive pain medications only from 1 physician group ( [facility]). They are to use 1 pharmacy and keep the clinic informed if they change pharmacies. Their responsibilities include making followup visits in a timely fashion and to avoid abrupt discontinuation of medication usage. Their responsibilities further include bringing their medications (bottles from the pharmacy with residual pills) to the visit for possible confirmation of pill counts and the patient understands it is their responsibility to submit to random drug screens to ensure both that the medications prescribed are present, and that no other controlled substances are present. All prescriptions provided today were generated electronically. 4. The patient to return to our clinic in 3 months for medication management. ��������������������������������������������� ���������������������������������������� By: ��������������������������������������������� [id number] Francesco Pichardo DO /nt
[2018-08-01 08:01] VITALS: BP 129/88
--- NOTE | 2018-08-01 08:06 | NUR ---
Pain Clinic Assessment: 1. History of Osteoarthritis: Left Lower Extremity Right Lower Extremity History of Rheumatoid Arthritis: Not Applicable 2. Height: 6 ft. 6 in. 198.1 cm. Weight: 187.0 lb. oz. 84.823 kg. Patient's BMI: 21.6 3. Vital Signs: BP: 129/88 Pulse: 68 Resp: 16 Temp: 02 Sat: 98 ECG Mon: 4. Pain Intensity: 5 5. Fall Risk: Dizziness: N Needs help standing or walking: N Fallen in the last 3 months: N Fall risk comments: 6. Patient on Blood Thinner: XARELTO 7. History of Hypertension: N 8. Opioid Therapy greater than 6 weeks: Y Opiate Contract Signed: 12/08/15 9. Risk Assessment Tool Provided: 0 LOW RISK 10. Functional Assessment Tool: 11. Recreational Drug Use: Never Drug Type: Tobacco Use: Never Smoker Tobacco Type: Amount or Packs/day: How Many Years: Alcohol Use: No Frequency: Quant:
== END ==
LOC: PAIN 07-04 13:52
DX: M25.562 Pain in left knee (principal); G89.4 Chronic pain syndrome; F11.23 Opioid dependence with withdrawal; F11.20 Opioid dependence, uncomplicated; Q87.2 Congenital malformation syndromes predominantly involving limbs; Z79.899 Other long term (current) drug therapy

== ENCOUNTER → 2018-10-25 | Outpatient (CLI) | payer BC ==
[~2018-10-25] VITALS: Ht 198.1 cm; Wt 78.9 kg
[~2018-10-25] MED LIST changes: +OXCARBAZEPINE300 MG PO; +PROTONIX40 M1 PO; +XTAMPZA ER18 MG PO
[2018-10-25 08:06] VITALS: BP 119/74
--- NOTE | 2018-10-25 08:18 | NUR ---
Pain Clinic Assessment: 1. History of Osteoarthritis: Left Lower Extremity Right Lower Extremity History of Rheumatoid Arthritis: Not Applicable 2. Height: 6 ft. 6 in. 198.1 cm. Weight: 174.0 lb. oz. 78.926 kg. Patient's BMI: 20.1 3. Vital Signs: BP: 119/74 Pulse: 76 Resp: 14 Temp: 02 Sat: 100 ECG Mon: 4. Pain Intensity: 5 5. Fall Risk: Dizziness: N Needs help standing or walking: N Fallen in the last 3 months: N Fall risk comments: 6. Patient on Blood Thinner: XARELTO 7. History of Hypertension: N 8. Opioid Therapy greater than 6 weeks: Y Opiate Contract Signed: 12/08/15 9. Risk Assessment Tool Provided: 0 LOW RISK 10. Functional Assessment Tool: 11. Recreational Drug Use: Never Drug Type: Tobacco Use: Never Smoker Tobacco Type: Amount or Packs/day: How Many Years: Alcohol Use: No Frequency: Quant:
--- NOTE | 2018-10-26 15:19 | HPC ---
[facility] [place] [address] PAIN MANAGEMENT CONSULTATION Name: MARLANELLY Bernadette Room #: REG [facility] [place]#: [id number] Admission: 10/25/18 ������������������ Attend Phys: Dede Craig Discharge: ������������������ Date of : 82 Report #: [id number] THIS REPORT FOR: //name// CC: Dede Patel DATE OF SERVICE: 10/25/2018 CHIEF COMPLAINT: Bilateral leg pain. HISTORY OF PRESENT ILLNESS: As you know, this is a very pleasant 38-year-old gentleman who returns to the pain clinic today for medication management. The patient was recently switched back to Nucynta ER 3 times a day and Nucynta IR 3 times a day hoping that he would have better pain control from the methadone and Percocet that he had been on for a short period. He tells me today that his pain is not well controlled at all. He told me he is doing "terrible." He rates his pain score at 5/10 today. He tells me that he does not understand why that Nucynta is not as effective as it used to be, but his pain has increased. He tells me it does not last as long and he does not feel that he has to get his pain control as when he had been on it prior. He was wondering if there were some other medications that we are able to switch to. He found that methadone was not as effective as Nucynta was in controlling his pain. The patient tells me he does not have any problems with constipation or daytime sleepiness. His pain is worse with activity or walking for long periods. Medication used to be helpful and lying down also helped to relieve some of his pain. ALLERGIES: SULFA AND GADOLINIUM DYE. MEDICATIONS: Protonix 40 mg daily, Nucynta ER 100 mg 3 times a day, Nucynta 75 mg t.i.d., Trileptal 300 mg b.i.d., Xarelto 20 mg daily and multivitamin. PQRS: 1. He has a history of osteoarthritis in his lower extremities. Denies rheumatoid arthritis. 2. Height is 6 feet 6 inches, weight is 174, BMI is 20. 3. Vital signs: Blood pressure 119/74, pulse is 76, respirations 14, oxygen level 100. 4. Pain score is 5/10. 5. Denies dizziness. Does not need help with walking or standing. He has not fallen in the last 3 months. 6. The patient is on Xarelto and does not take medicines for hypertension. 7. Opioid therapy is greater than 6 weeks; therefore, an opioid signed contract is on the chart. His risk assessment tool is low. His functional assessment is 16/70. 8. Recreational drug use, he denies. He is not a smoker [place] [address] PAIN MANAGEMENT CONSULTATION Name: NELLY GUTIÉRREZ Bernadette Room #: REG [place] Green#: [id number] Admission: 10/25/18 ������������������ Attend Phys: Dede Craig Discharge: ������������������ Date of : 82 Report #: [id number] alcohol. We did check the prescription monitoring system. The patient is filling appropriately and has been due in a few days for his Nucynta. We will check a urine drug screen on the patient today since it has been greater than one year since his last random screen. PHYSICAL EXAMINATION: GENERAL: This is a well-developed, well-nourished, well-hydrated 38-year-old quite thin male. He appears his stated age, placing his current pain score of 5/10. HEENT: Normocephalic, atraumatic. Pupils equal, round and reactive to light. EXTREMITIES: No clubbing, no cyanosis, no edema. MUSCULOSKELETAL: Muscle bulk and tone appear symmetrical in comparing lower extremities from the left to the right. He does walk with a mild antalgic gait. Does complain of burning bilaterally in his legs. ASSESSMENT: 1. Chronic knee pain. 2. Bilateral leg pain. 3. Klippel-Trenaunay Norris syndrome. 4. Opioid dependency. 5. Opioid intolerance. 6. Chronic intractable pain. We reviewed the fact that opiate medications are being used to provide analgesia adequate to support activities of daily living, not attempting to achieve a specific pain score on the 0-10 Visual Analog Scale. The current opiate medications are providing sufficient analgesia to allow the patient to participate in activities of daily living. The patient is not exhibiting any aberrant behavior suggestive of drug diversion. The patient is not having any adverse reactions to medications. The patient is not suffering from daytime somnolence or mental acuity changes. The patient is managing opiate-induced constipation with appropriate zidh-fxo-kelavva agents and dietary considerations. The patient was counseled on concern for caution with operating a motor vehicle while using opiate medications. A physical exam was performed and the patient's functional status was evaluated. All patients with back pain were advised against the bed rest greater than 4 days and were advised to return to normal activities. Pain score assessment was noted and the treatment plan was reviewed with the patient. All current medications, both prescribed and OTC were reviewed and reconciled on the electronic medical record. Tobacco screening was accomplished and smoking cessation was advised when indicated. BMI was noted and diet/exercise modification was recommended for all patients following outside normal parameters. [address] [address] PAIN MANAGEMENT CONSULTATION Name: NELLY GUTIÉRREZ [id number] Admission: 10/25/18 ������������������ Attend Phys: Dede BRYNA Fernandezgage Discharge: ������������������ Date of : 82 Report #: [id number] I reviewed with the patient today their responsibilities to safeguard prescription medications, reviewed their responsibility to utilize medications only as prescribed by the physician. They are to seek and receive pain medications only from 1 physician group ( [facility]). They are to use 1 pharmacy and keep the clinic informed if they change pharmacies. Their responsibilities include making followup visits in a timely fashion and to avoid abrupt discontinuation of medication usage. Their responsibilities further include bringing their medications (bottles from the pharmacy with residual pills) to the visit for possible confirmation of pill counts and the patient understands it is their responsibility to submit to random drug screens to ensure both that the medications prescribed are present, and that no other controlled substances are present. All prescriptions provided today were generated electronically. PLAN: 1. We discussed treatment options with the patient today. The patient tells me that he is not experiencing good pain control relief from the Nucynta ER and IR as he had before. He tells me that his pain level has increased, though the number remains the same as last visit. He feels that it is not as effective, does not last as long in duration as it used to do, though he does not want to go back to methadone and Percocet rotation because he thought that was not as effective either, wondering if there are other alternatives. I did look through the chart. The patient has been a longstanding patient in our clinic. In the past, he had also been on OxyContin, Dilaudid and Percocet as well as the methadone. 2. After discussion with Dr. Field, he did see the patient as well today. We decided to try Xtampza 18 mg b.i.d. and return to Percocet 5/325 three times a day for his breakthrough pain medicine. We explained that may be just a new type of medication to the body might be helpful in reducing some of his pain. It does not have the neuropathic properties that Nucynta and methadone have, but the patient had been on OxyContin in the past which is a similar product to the Xtampza, so this may be beneficial. Xtampza does have abuse deterrent properties in this, though I do not believe that is a problem with this patient. I find it is a good quality in the long-acting opioids. 3. Scripts given today for 1 month as well as Trileptal 300 mg #60 with 5 additional refills. 4. The patient will return in 1 month's time period to revisit how this medication is doing. Dr. Field is agreeable with this plan of care and collaborated today. The patient will call for an appointment. ��������������������������������������������� <ELECTRONICALLY SIGNED> ���������������������������������������� By: Dede Craig ��������������������������������������������� 10/26/18 1519 [id number] Dede Craig /nt
== END ==
LOC: PAIN 06:41
DX: T88.7XXA Unspecified adverse effect of drug or medicament, initial encounter (principal); T40.2X5A Adverse effect of other opioids, initial encounter; Z79.891 Long term (current) use of opiate analgesic; Z79.899 Other long term (current) drug therapy; Z88.2 Allergy status to sulfonamides; Z91.041 Radiographic dye allergy status; Y92.89 Other specified places as the place of occurrence of the external cause

== ENCOUNTER → 2018-11-22 | Outpatient (CLI) | payer BC ==
[~2018-11-22] VITALS: Ht 198.1 cm; Wt 77.6 kg
[2018-11-22 08:18] VITALS: BP 128/76
--- NOTE | 2018-11-22 08:19 | NUR ---
Pain Clinic Assessment: 1. History of Osteoarthritis: Left Lower Extremity Right Lower Extremity History of Rheumatoid Arthritis: Not Applicable 2. Height: 6 ft. 6 in. 198.1 cm. Weight: 171.0 lb. oz. 77.565 kg. Patient's BMI: 19.8 3. Vital Signs: BP: 128/76 Pulse: 59 Resp: 16 Temp: 02 Sat: 99 ECG Mon: 4. Pain Intensity: 5 5. Fall Risk: Dizziness: N Needs help standing or walking: N Fallen in the last 3 months: N Fall risk comments: 6. Patient on Blood Thinner: XARELTO 7. History of Hypertension: N 8. Opioid Therapy greater than 6 weeks: Y Opiate Contract Signed: 12/08/15 9. Risk Assessment Tool Provided: 0 LOW RISK 10. Functional Assessment Tool: 11. Recreational Drug Use: Never Drug Type: Tobacco Use: Never Smoker Tobacco Type: Amount or Packs/day: How Many Years: Alcohol Use: No Frequency: Quant:
--- NOTE | 2018-11-24 07:17 | HPC ---
[facility] [address] [place] [address] PAIN MANAGEMENT CONSULTATION Name: NELLY GUTIÉRREZ Bernadette Room #: REG [facility] [place].#: [id number] Admission: 11/22/18 ������������������ Attend Phys: Dede Craig Discharge: ������������������ Date of : 84 Report #: [id number] THIS REPORT FOR: //name// CC: Dede Patel DATE OF SERVICE: 11/22/2018 CHIEF COMPLAINT: Bilateral leg pain. HISTORY OF PRESENT ILLNESS: This is a very pleasant 38-year-old gentleman who returns to the pain clinic today for medication management. Last month when we saw him, we had rotated him to Xtampza 18 mg twice a day in place of his Nucynta because he felt that it was not working as well in controlling his pain, though despite his pain score of 5/10 for the past 6 months. He tells me that he feels like he was better controlled on other medications than the Xtampza. He is wondering if he could rotate back. His pain score today is 5/10 in his bilateral legs and his lower back. It is a burning, aching pain, worse with standing too long and walking too long. The patient has some constipation, but it is relieved with gyod-ytl-jprbrpv medications. He does not experience any daytime sleepiness or overmedication filling with Xtampza, just feels that the dose is not as effective as his other medicines. ALLERGIES: SULFA AND GADOLINIUM. CURRENT MEDICATIONS: Xtampza ER 18 mg b.i.d., oxcarbazepine 300 mg b.i.d., Protonix, Xarelto, multivitamin and Percocet 5/325. PQRS: He has a history of osteoarthritis in his lower extremity. Denies any rheumatoid arthritis. Height is 6 feet 6 inches, weight is 171. BMI is 19. Vital signs 128/76, pulse is 59, respirations 16, oxygen sat is 99. Pain score is 5/10. While resting, denies any dizziness, does not need help walking or standing. Has not fallen in the last 3 months. The patient is on Xarelto and does not take blood pressure medicines. His opiate therapy is greater than 6 weeks; therefore, an opioid signed contract is on the chart. His risk assessment tool is low. Functional assessment is 60/70. Recreational drug use, he denies. He has never smoked and does not drink alcohol. We did check the prescription monitoring system. The patient did fill his medications in a timely fashion by our physicians. There is a recent drug screen on the chart that is appropriate for his medications. PHYSICAL EXAMINATION: GENERAL: This is a well-developed, well-nourished, well-hydrated 38-year-old that appears quite thin that he appears his stated age, placing his current pain score at 5/10. [address] [address] PAIN MANAGEMENT CONSULTATION Name: NELLY GUTIÉRREZ Room #: REG [facility] Norma#: [id number] Admission: 11/22/18 ������������������ Attend Phys: Dede Craig Discharge: ������������������ Date of : 84 Report #: [id number] HEENT: Normocephalic, atraumatic. Pupils equal, round and reactive to light. Mucous membranes are moist. EXTREMITIES: No clubbing, no cyanosis, no edema. MUSCULOSKELETAL: Muscle bulk and tone appears symmetrical in his lower extremities. He walks with a slightly antalgic gait, complains of burning bilateral in his legs. ASSESSMENT: 1. Chronic knee pain. 2. Bilateral leg pain. 3. Gjmcgpq-Ucprbtaqx-Tsbcy syndrome. 4. Opioid dependency. 5. Opioid intolerance. 6. Chronic intractable pain. We reviewed the fact that opiate medications are being used to provide analgesia adequate to support activities of daily living, not attempting to achieve a specific pain score on the 0-10 Visual Analog Scale. The current opiate medications are providing sufficient analgesia to allow the patient to participate in activities of daily living. The patient is not exhibiting any aberrant behavior suggestive of drug diversion. The patient is not having any adverse reactions to medications. The patient is not suffering from daytime somnolence or mental acuity changes. The patient is managing opiate-induced constipation with appropriate szjn-ihz-kezaapo agents and dietary considerations. The patient was counseled on concern for caution with operating a motor vehicle while using opiate medications. A physical exam was performed and the patient's functional status was evaluated. All patients with back pain were advised against the bed rest greater than 4 days and were advised to return to normal activities. Pain score assessment was noted and the treatment plan was reviewed with the patient. All current medications, both prescribed and OTC were reviewed and reconciled on the electronic medical record. Tobacco screening was accomplished and smoking cessation was advised when indicated. BMI was noted and diet/exercise modification was recommended for all patients following outside normal parameters. I reviewed with the patient today their responsibilities to safeguard prescription medications, reviewed their responsibility to utilize medications only as prescribed by the physician. They are to seek and receive pain medications only from 1 physician group ([facility]). They are to use 1 pharmacy and keep the clinic informed if they change pharmacies. Their responsibilities include making followup visits in a timely fashion and to avoid abrupt discontinuation of medication usage. Their responsibilities further include bringing their medications (bottles from the pharmacy with residual pills) to the visit for possible confirmation of pill counts and the patient [address] [place] [address] PAIN MANAGEMENT CONSULTATION Name: NELLY GUTIÉRREZ Room #: REG [facility].#: [id number] Admission: 11/22/18 ������������������ Attend Phys: Dede BRYAN Craig Discharge: ������������������ Date of : 82 Report #: [id number] understands it is their responsibility to submit to random drug screens to ensure both that the medications prescribed are present, and that no other controlled substances are present. All prescriptions provided today were generated electronically. PLAN: 1. We discussed treatment options with the patient today. The patient wishes to rotate his medications again finding the Xtampza not as effective in controlling his pain. I questioned the patient since he had been on OxyContin, Dilaudid, Percocet, methadone, Nucynta in the past that we need to stay on one medication and not continue to do all these opioid rotations. He feels that Nucynta was the most effective in relieving his pain and would like to return to that medication. 2. Scripts given today for Nucynta 75 mg t.i.d., #90 for today for an 8-week release and Nucynta ER 100 mg 3 times a day for today for an 8-week release. 3. The patient does not need his oxcarbazepine since that was filled just recently for several months. 4. I explained to the patient that we will not be rotating medications. We needed to give this medicine several months to get used to it again in his system and see if it is helpful. He verbalizes understanding. 5. The patient is seen in collaboration today with Dr. Francesco Pichardo. ��������������������������������������������� <ELECTRONICALLY SIGNED> ���������������������������������������� By: Dede Craig ��������������������������������������������� 11/24/18 0717 [id number] [id number] Dede Craig /nt
== END ==
LOC: PAIN 06:47
DX: M79.605 Pain in left leg (principal); M79.604 Pain in right leg; M25.561 Pain in right knee; M25.562 Pain in left knee; Q87.2 Congenital malformation syndromes predominantly involving limbs; F11.20 Opioid dependence, uncomplicated; T40.2X5A Adverse effect of other opioids, initial encounter; Y92.89 Other specified places as the place of occurrence of the external cause; Z79.899 Other long term (current) drug therapy

== ENCOUNTER → 2019-02-20 | Outpatient (CLI) | payer BC ==
[~2019-02-20] VITALS: Ht 198.1 cm; Wt 76.7 kg
[2019-02-20 08:11] VITALS: BP 140/81
--- NOTE | 2019-02-20 08:13 | NUR ---
Pain Clinic Assessment: 1. History of Osteoarthritis: Left Lower Extremity Right Lower Extremity History of Rheumatoid Arthritis: Not Applicable 2. Height: 6 ft. 6 in. 198.1 cm. Weight: 169.0 lb. oz. 76.658 kg. Patient's BMI: 19.5 3. Vital Signs: BP: 140/81 Pulse: 71 Resp: 12 Temp: 02 Sat: 95 ECG Mon: 4. Pain Intensity: 2 5. Fall Risk: Dizziness: N Needs help standing or walking: N Fallen in the last 3 months: N Fall risk comments: 6. Patient on Blood Thinner: XARELTO 7. History of Hypertension: N 8. Opioid Therapy greater than 6 weeks: Y Opiate Contract Signed: 12/08/15 9. Risk Assessment Tool Provided: 0 LOW RISK 10. Functional Assessment Tool: 11. Recreational Drug Use: Never Drug Type: Tobacco Use: Never Smoker Tobacco Type: Amount or Packs/day: How Many Years: Alcohol Use: No Frequency: Quant:
--- NOTE | 2019-02-21 08:46 | HPC ---
[facility] [address] [place] [address] PAIN MANAGEMENT CONSULTATION Name: NELLY GUTIÉRREZ Room #: REG [facility].#: [id number] Admission: 02/20/19 Attend Phys: Dede Craig Discharge: Date of : 84 Report #: [id number] THIS REPORT FOR: //name// CC: Dede Patel MD DATE OF SERVICE: 02/20/2019 CHIEF COMPLAINT: Bilateral leg pain. HISTORY OF PRESENT ILLNESS: This is a 38-year-old gentleman, who returns to the pain clinic today for refill of his Nucynta that he takes for his ongoing bilateral leg pain. He reports a pain score of 2/10. He tells me that the rotation back to Nucynta ER has been very beneficial in controlling his pain compared to the other Xtampza medicine and other long-acting pain medicines he was on. It is an aching, burning pain in his bilateral legs and lower back that is worse with standing too long and activity. He denies any problems with constipation or daytime sleepiness. He is here for refill today. ALLERGIES: SULFA AND GADOLINIUM. CURRENT MEDICATIONS: Nucynta ER 100 mg 3 times a day, Nucynta 75 mg 3 times a day, oxcarbazepine 300 b.i.d., Protonix 40 mg daily, Xarelto 20 mg daily and multivitamin. PQRS: 1. He has a history of osteoarthritis in his bilateral lower extremities. Denies any rheumatoid arthritis. 2. Height is 6 feet 6 inches, weight is 169, BMI is 19. 3. Vital signs 140/81, pulse is 71, respirations 12, oxygen sat is 95. 4. Pain score is 2/10. 5. Denies dizziness, does not need help walking or standing, has not fallen in the last 3 months. 6. The patient is on Xarelto, but does not take hypertension medicines. 7. Opioid therapy is greater than 6 weeks; therefore, an opioid signed contract is on the chart. Risk assessment is low. Functional assessment is . 8. Recreational drug use, he denies. He is not a smoker and does not drink alcohol. We did check the prescription monitoring system. The patient is filling appropriately for his medications and filling them in a timely fashion. There is a recent drug screen in the chart as well that is appropriate for his medicines. PHYSICAL EXAMINATION: [address] [address] PAIN MANAGEMENT CONSULTATION Name: NELLY GUTIÉRREZ Room #: REG [facility] Green#: [id number] Admission: 02/20/19 Attend Phys: Dede Craig Discharge: Date of : 84 Report #: [id number] GENERAL: This is a well-developed, well-nourished, well-hydrated 38-year-old gentleman who appears his stated age, placing his current pain score at 2/10 today. HEENT: Normocephalic, atraumatic. Extraocular eye muscles are intact. Mucous membranes are moist. EXTREMITIES: No clubbing, no cyanosis, no edema. MUSCULOSKELETAL: He walks with a slightly antalgic gait. He has burning in his bilateral legs that radiate to his feet. Muscle bulk and tone appears symmetrical in his lower extremities bilaterally. ASSESSMENT: 1. Chronic knee pain. 2. Bilateral leg pain. 3. Doagzsh-Afhqxrlfh-Gognk syndrome. 4. Opioid dependency. 5. Opioid intolerance. 6. Chronic intractable pain. We reviewed the fact that opiate medications are being used to provide analgesia adequate to support activities of daily living, not attempting to achieve a specific pain score on the 0-10 Visual Analog Scale. The current opiate medications are providing sufficient analgesia to allow the patient to participate in activities of daily living. The patient is not exhibiting any aberrant behavior suggestive of drug diversion. The patient is not having any adverse reactions to medications. The patient is not suffering from daytime somnolence or mental acuity changes. The patient is managing opiate-induced constipation with appropriate aszj-zki-nyrbjuq agents and dietary considerations. The patient was counseled on concern for caution with operating a motor vehicle while using opiate medications. A physical exam was performed and the patient's functional status was evaluated. All patients with back pain were advised against the bed rest greater than 4 days and were advised to return to normal activities. Pain score assessment was noted and the treatment plan was reviewed with the patient. All current medications, both prescribed and OTC were reviewed and reconciled on the electronic medical record. Tobacco screening was accomplished and smoking cessation was advised when indicated. BMI was noted and diet/exercise modification was recommended for all patients following outside normal parameters. I reviewed with the patient today their responsibilities to safeguard prescription medications, reviewed their responsibility to utilize medications only as prescribed by the physician. They are to seek and receive pain medications only from 1 physician group ([facility]). They are to use 1 pharmacy and keep the clinic informed if they change pharmacies. Their responsibilities include making followup visits in a timely fashion and to avoid [address] [address] PAIN MANAGEMENT CONSULTATION Name: NELLY GUTIÉRREZ Room #: REG [facility] HenriquezBrenda#: [id number] Admission: 02/20/19 Attend Phys: Dede Craig Discharge: Date of : 82 Report #: [id number] abrupt discontinuation of medication usage. Their responsibilities further include bringing their medications (bottles from the pharmacy with residual pills) to the visit for possible confirmation of pill counts and the patient understands it is their responsibility to submit to random drug screens to ensure both that the medications prescribed are present, and that no other controlled substances are present. All prescriptions provided today were generated electronically. PLAN: 1. We discussed treatment options with the patient today. The patient is doing well with a rotation back to Nucynta for his long-acting pain medicines. He is tolerating them quite well. Scripts given today for Nucynta ER 100 mg 3 times a day, #90 for today, 4-week and 8-week release and Nucynta 75 mg t.i.d., #90 for today, 4-week and 8-week release. 2. Trileptal 300 mg #60 with 2 refills was also given. 3. The patient is seen in collaboration today with Dr. Francesco Pichardo. <ELECTRONICALLY SIGNED> By: Dede Craig 02/21/19 0846 1001 Dede Craig /sp
== END ==
LOC: PAIN 06:50
DX: M79.604 Pain in right leg (principal); M79.605 Pain in left leg; G89.29 Other chronic pain; M25.569 Pain in unspecified knee; F11.20 Opioid dependence, uncomplicated; T40.2X5A Adverse effect of other opioids, initial encounter; Y92.89 Other specified places as the place of occurrence of the external cause

== ENCOUNTER → 2019-05-16 | Outpatient (CLI) | payer BC ==
[~2019-05-16] VITALS: Ht 198.1 cm; Wt 78.6 kg
[~2019-05-16] MED LIST changes: +ROXICODONE5 MG PO
[2019-05-16 13:29] VITALS: BP 129/82
--- NOTE | 2019-05-16 13:35 | NUR ---
Pain Clinic Assessment: 1. History of Osteoarthritis: Left Lower Extremity Right Lower Extremity History of Rheumatoid Arthritis: Not Applicable 2. Height: 6 ft. 6 in. 198.1 cm. Weight: 173.2 lb. oz. 78.563 kg. Patient's BMI: 20.0 3. Vital Signs: BP: 129/82 Pulse: 73 Resp: 14 Temp: 02 Sat: 99 ECG Mon: 4. Pain Intensity: 4 5. Fall Risk: Dizziness: N Needs help standing or walking: N Fallen in the last 3 months: N Fall risk comments: 6. Patient on Blood Thinner: XARELTO 7. History of Hypertension: N 8. Opioid Therapy greater than 6 weeks: Y Opiate Contract Signed: 12/08/15 9. Risk Assessment Tool Provided: 0 LOW RISK 10. Functional Assessment Tool: 11. Recreational Drug Use: Never Drug Type: Tobacco Use: Never Smoker Tobacco Type: Amount or Packs/day: How Many Years: Alcohol Use: No Frequency: Quant:
--- NOTE | 2019-05-17 08:13 | HPC ---
[facility] [place] [address] PAIN MANAGEMENT CONSULTATION Name: NELLY GUTIÉRREZ Room #: REG [facility].#: [id number] Admission: 05/16/19 Attend Phys: Dede Craig Discharge: Date of : 84 Report #: [id number] THIS REPORT FOR: //name// CC: Dede Patel DATE OF SERVICE: 05/16/2019 CHIEF COMPLAINT: Bilateral leg pain. HISTORY OF PRESENT ILLNESS: This is a 39-year-old gentleman who returns to the pain clinic today for medication management for his ongoing bilateral leg pain. He does have occasional neck and back pain, rating his overall pain at a 4/10 today. It is a chronic aching, burning pain that is worse with activity or prolonged standing or walking. He feels that the medication is very beneficial, but today he has brought back a letter from his insurance company stating that they were changing their pharmaceutical plans and he will no longer be covered on Nucynta after May. The patient is reporting that he would like to change to a medication that he has been on before. He feels that the Nucynta has been the most beneficial drugs in controlling his pain, though he has taken other medicines in the past that have been fairly helpful per his report. ALLERGIES: SULFA and GADOLINIUM. CURRENT LIST OF MEDICATIONS: Trileptal 300 mg b.i.d., Nucynta 75 mg t.i.d., Nucynta ER 100 mg t.i.d., Protonix, Xarelto and multivitamin. PQRS: 1. He has a history of osteoarthritis in his bilateral lower extremities. Denies any rheumatoid arthritis. 2. Height is 6 feet 6 inches, weight is 173. BMI is 20. 3. Vital signs; 129/82, pulse is 73, respirations 14, oxygen sat is 99. 4. Pain score is 4/10. 5. Denies dizziness, does not need help walking or standing, has not fallen in the last 3 months. The patient is on Xarelto and does not take medicine for hypertension. 6. Opiate therapy is greater than 6 weeks; therefore, an opioid signed contract is on the chart. Risk assessment tool is low. Functional assessment is . 7. Recreational drug use, he denies. He is not a smoker and does not drink alcohol. According to the prescription monitoring system, the patient is filling appropriately for his medications in a timely fashion. He is on a very high morphine mEq at 180 MME according to the CDC guidelines conversion from [address] [address] PAIN MANAGEMENT CONSULTATION Name: NELLY GUTIÉRREZ Room #: REG [facility] [place]#: [id number] Admission: 05/16/19 Attend Phys: Dede Craig Discharge: Date of : 84 Report #: [id number] to morphine. PHYSICAL EXAMINATION: GENERAL: This is a well-developed, well-nourished, well-hydrated 39-year-old gentleman who appears his stated age, placing his current pain score at 4/10 today. HEENT: Normocephalic, atraumatic. Extraocular eye muscles are intact. Mucous membranes are moist. EXTREMITIES: No clubbing, no cyanosis, no edema. MUSCULOSKELETAL: He has burning in his bilateral legs that radiates from his back into his feet. Muscle tone, bulk and strength are symmetrical in his lower extremities bilaterally. He walks with a slightly antalgic gait. ASSESSMENT: 1. Chronic knee pain. 2. Bilateral leg pain. 3. Rvocwev-Fxlscfwtt-Jiukm syndrome, opioid dependency. 4. Opioid intolerance. 5. Chronic intractable pain. 6. Complex medical management under terms of written opioid agreement. We reviewed the fact that opiate medications are being used to provide analgesia adequate to support activities of daily living, not attempting to achieve a specific pain score on the 0-10 Visual Analog Scale. The current opiate medications are providing sufficient analgesia to allow the patient to participate in activities of daily living. The patient is not exhibiting any aberrant behavior suggestive of drug diversion. The patient is not having any adverse reactions to medications. The patient is not suffering from daytime somnolence or mental acuity changes. The patient is managing opiate-induced constipation with appropriate dmhv-tbf-phqfgce agents and dietary considerations. The patient was counseled on concern for caution with operating a motor vehicle while using opiate medications. PLAN: 1. We discussed treatment options with the patient today. He is doing quite well on his Nucynta though he has brought a letter from his insurance company as of May 30, they will no longer cover this medication. I did parooz his lengthy chart. The patient has been on methadone, oxycodone, OxyContin, Xtampza in the past as well as short-acting Percocet and Dilaudid. He has felt that the OxyContin and the methadone were beneficial. The Xtampza was not as effective as in controlling his pain. According to the letter from his insurance company, they will cover OxyContin and oxycodone, so after discussion with Dr. Francesco Pichardo we are rotating him to OxyContin 15 mg b.i.d., #60 tablets sent for today for an 8-week release as well as oxycodone 5 mg t.i.d., #90. Script sent electronically for today 4 an 8-week release. 2. I explained to the patient normally would have him come back in 1 month, but [facility] [address] [place] [address] PAIN MANAGEMENT CONSULTATION Name: NELLY GUTIÉRREZ Room #: REG [facility] Norma#: [id number] Admission: 05/16/19 Attend Phys: Dede Craig Discharge: Date of : 84 Report #: [id number] since he had been on these medications previously, I believe he will transition well; therefore, we are allowing him 3 months' supply of this medication. 3. This is a decrease in his morphine mEq to 70 MME per day. 4. The patient is seen today in collaboration with Dr. Francesco Pichardo. The patient instructed to call if he has any difficulties. <ELECTRONICALLY SIGNED> By: Dede Craig 05/17/19 0813 1534 210 Dede Craig /sp
== END ==
LOC: PAIN 06:57
DX: T40.2X5A Adverse effect of other opioids, initial encounter (principal); M25.561 Pain in right knee; M25.562 Pain in left knee; G89.29 Other chronic pain; Q87.2 Congenital malformation syndromes predominantly involving limbs; Z88.2 Allergy status to sulfonamides; Z88.8 Allergy status to other drugs, medicaments and biological substances; Z79.899 Other long term (current) drug therapy; Z79.891 Long term (current) use of opiate analgesic; Y92.89 Other specified places as the place of occurrence of the external cause

== ENCOUNTER → 2019-06-13 | Outpatient (CLI) | payer BC ==
[~2019-06-13] VITALS: Ht 198.1 cm; Wt 79.6 kg
[2019-06-13 12:46] VITALS: BP 120/69
--- NOTE | 2019-06-13 13:00 | NUR ---
Pain Clinic Assessment: 1. History of Osteoarthritis: Left Lower Extremity Right Lower Extremity History of Rheumatoid Arthritis: Not Applicable 2. Height: 6 ft. 6 in. 198.1 cm. Weight: 175.4 lb. oz. 79.561 kg. Patient's BMI: 20.3 3. Vital Signs: BP: 120/69 Pulse: 64 Resp: 14 Temp: 02 Sat: 100 ECG Mon: 4. Pain Intensity: 6 5. Fall Risk: Dizziness: N Needs help standing or walking: N Fallen in the last 3 months: N Fall risk comments: 6. Patient on Blood Thinner: XARELTO 7. History of Hypertension: N 8. Opioid Therapy greater than 6 weeks: Y Opiate Contract Signed: 12/08/15 9. Risk Assessment Tool Provided: 0 LOW RISK 10. Functional Assessment Tool: 11. Recreational Drug Use: Never Drug Type: Tobacco Use: Never Smoker Tobacco Type: Amount or Packs/day: How Many Years: Alcohol Use: No Frequency: Quant:
--- NOTE | 2019-06-19 07:54 | HPC ---
[facility] [address] [place] [address] PAIN MANAGEMENT CONSULTATION Name: NELLY GUTIÉRREZ [id number] Admission: 06/13/19 Attend Phys: Francesco Pichardo DO Discharge: Date of : 84 Report #: [id number] THIS REPORT FOR: //name// CC: Elissa Pichardo DATE OF SERVICE: 06/13/2019 REFERRING PHYSICIAN: Elissa Patel MD CHIEF COMPLAINT: Bilateral leg pain. HISTORY OF PRESENT ILLNESS: As you know, the patient is a 39-year-old male who returns today in followup visit, describing lack of efficacy with his OxyContin therapy. We rotated the patient over to OxyContin from his previous Nucynta due to third constitution party payer restrictions of medications that he could receive. We were given a letter from the patient that he received from his insurer indicating that they would not cover the Nucynta further. We made adjustments to OxyContin as he has been on all the other medications in various forms over the years with lack of efficacy or side effects. He had not trialed OxyContin as we try to avoid these highly addicting substances. We have rotated the patient over to OxyContin, but again the patient is reporting no significant pain improvement. In fact, he is reporting pain score 6/10. He states he has significant end-of-dose failure with loss of efficacy at about 6 hours. He returns today in followup visit to discuss options for treatment. ALLERGIES: SULFA, GADOLINIUM. CURRENT MEDICATIONS: Trileptal 300 mg b.i.d., oxycodone 5 mg t.i.d. p.r.n. pain, OxyContin 15 mg b.i.d., pantoprazole 40 mg per day, Xarelto 20 mg per day, multivitamin 1 tab per day. SOCIAL HISTORY: The patient reports himself as a nonsmoker. Denies IV or illicit drug use. He is working, not receiving workmen's compensation. PHYSICAL EXAMINATION: VITAL SIGNS: Blood pressure 120/69, pulse 64, respiratory rate 14 and unlabored. The patient is 100% on room air, height 6 feet 6 inches tall, weight 175.4 pounds, BMI calculated 20.3. GENERAL: Well-developed, well-nourished, well-hydrated, thin, 39-year-old male appearing stated age, pain is rated around 6/10. HEENT: Normocephalic, atraumatic. Pupils equal, round, reactive to light. EXTREMITIES: Show no clubbing, no cyanosis. No apparent edema. MUSCULOSKELETAL: Muscle bulk and tone appears symmetrical in comparing left lower extremity over right. He does walk with a slightly antalgic gait. No changes in skin color or texture. No changes in temperature. [address] [address] PAIN MANAGEMENT CONSULTATION Name: NELLY GUTIÉRREZ Room #: REG [facility].#: [id number] Admission: 06/13/19 Attend Phys: Francesco Pichardo DO Discharge: Date of : 84 Report #: [id number] ASSESSMENT: 1. Chronic bilateral knee pain. 2. Bilateral leg pain. 3. Ofygpih-Ofvppnqnk-Ubolq syndrome. 4. Opioid dependency. 5. Opioid intolerance. 6. Chronic intractable pain. PLAN: 1. The patient has returned today in followup visit, stating that he is experiencing significant end-of-dose failure about 6 hours with the OxyContin. Even with the medication, he is not noticing much in the way of improvement, not that he had seen with the Nucynta. He returns today to discuss options for treatment. We reviewed the letter given to him by his insurer indicating the medications that would be covered by the formulary and unfortunately, the patient has been on each of these medications and these side effects he could not tolerate or lack of efficacy. He received best of improvement with Nucynta. Unfortunately, this is no longer covered by his insurer. I advised the patient at this time that we are limited and what we can offer as we do not set the formularies. He can certainly contact his third constitution party payer and discuss his concerns with the medication and determine if they would be willing to cover this therapy. I have advised the patient that we have attempted to gain prior authorization on this medication multiple times and have been unsuccessful. We could attempt a lbxw-ol-xrmd review with the patient's insurer though I am not confident this will gain us the access to the medication as it is not unformulary for this insurance. 2. I recommend the patient remain on his OxyContin and oxycodone combination with the understanding. We will attempt to gain authorization for Nucynta though it may require him to also make inroads through his insurer. We will begin the authorization process to gain a peer to peer to determine if we can gain coverage. Hopefully, get this peer to peer in the next couple of days. Right now, I will keep the patient on his current medications. 3. I will contact the patient next week to apprise of our progress. <ELECTRONICALLY SIGNED> By: Francesco Pichardo DO 06/19/19 0754 [id number] [id number] Francesco Pichardo DO /nt
== END ==
LOC: PAIN 06:56
DX: M25.561 Pain in right knee (principal); M25.562 Pain in left knee; G89.4 Chronic pain syndrome; Q87.2 Congenital malformation syndromes predominantly involving limbs; F11.20 Opioid dependence, uncomplicated; Z79.899 Other long term (current) drug therapy; Z88.2 Allergy status to sulfonamides; Z88.8 Allergy status to other drugs, medicaments and biological substances

== ENCOUNTER → 2019-08-14 | Outpatient (CLI) | payer BC ==
[~2019-08-14] VITALS: Ht 198.1 cm; Wt 83.6 kg
[~2019-08-14] MED LIST changes: +ROXICODONE5 M2 PO
[2019-08-14 08:09] VITALS: BP 115/64
--- NOTE | 2019-08-14 08:16 | NUR ---
Pain Clinic Assessment: 1. History of Osteoarthritis: Left Lower Extremity Right Lower Extremity History of Rheumatoid Arthritis: Not Applicable 2. Height: 6 ft. 6 in. 198.1 cm. Weight: 184.2 lb. oz. 83.553 kg. Patient's BMI: 21.3 3. Vital Signs: BP: 115/64 Pulse: 69 Resp: 16 Temp: 02 Sat: 98 ECG Mon: 4. Pain Intensity: 5 5. Fall Risk: Dizziness: N Needs help standing or walking: N Fallen in the last 3 months: N Fall risk comments: 6. Patient on Blood Thinner: XARELTO 7. History of Hypertension: N 8. Opioid Therapy greater than 6 weeks: Y Opiate Contract Signed: 12/08/15 9. Risk Assessment Tool Provided: LOW RISK 0/3 10. Functional Assessment Tool: 11. Recreational Drug Use: Never Drug Type: Tobacco Use: Never Smoker Tobacco Type: Amount or Packs/day: How Many Years: Alcohol Use: No Frequency: Quant:
--- NOTE | 2019-08-14 15:46 | HPC ---
[facility] [place] [address] PAIN MANAGEMENT CONSULTATION Name: NELLY GUTIÉRREZ Room #: REG [facility].#: [id number] Admission: 08/14/19 Attend Phys: Francesco Pichardo DO Discharge: Date of : 84 Report #: [id number] THIS REPORT FOR: cc: Elissa Patel MD, Jacquelyn MD Johnson, James E. DO ~ DATE OF SERVICE: 08/14/2019 REFERRING PHYSICIAN: Elissa Patel MD CHIEF COMPLAINT: Bilateral leg pain. HISTORY OF PRESENT ILLNESS: As you know, patient is a 39-year-old male returning in followup visit for continuation of medication therapy. We have rotated the patient to OxyContin and oxycodone combination based on his third democrat payer restrictions. The patient reports today that he has now changed jobs and is in the process of changing insurances. He does not have this information with him today. He returns today in followup visit for medication management. We have discussed that we would continue the patient for a month on current medication with plans to potentially rotate back to Nucynta assuming coverage is available on his new insurance. He is not sure of his insurance product, so we cannot comment on this at this point. He returns today for medication management. He denies any side effects to the therapy. He is placing pain score of 5/10. ALLERGIES: SULFA, GADOLINIUM. CURRENT MEDICATIONS: Trileptal 300 mg b.i.d., oxycodone 5 mg t.i.d. p.r.n., OxyContin 15 mg b.i.d., pantoprazole 40 mg once a day, Xarelto 20 mg once a day, multivitamin 1 tab per day. SOCIAL HISTORY: The patient reports himself a nonsmoker. Denies IV or illicit drug use. Denies any chronic alcohol use. He is working, not receiving workmen's compensation, unaccompanied today. IMAGING: No new imaging available. PHYSICAL EXAMINATION: VITAL SIGNS: Blood pressure 115/64, pulse 69, respiratory rate 16 and unlabored. The patient is 98% on room air, height 6 feet 6 inches tall, weight 184.2 pounds and BMI calculated 21.3. GENERAL: Well-developed, well-nourished, well-hydrated, thin, 39-year-old male appearing stated age, pain is rated today 5/10. HEENT: Normocephalic, atraumatic. Pupils equal, round and reactive. Speech [facility] [address] [place] [address] PAIN MANAGEMENT CONSULTATION Name: NELLY GUTIÉRREZ Room #: REG [facility]#: [id number] Admission: 08/14/19 Attend Phys: Francesco Pichardo DO Discharge: Date of : 82 Report #: [id number] fluent. EXTREMITIES: Show no clubbing, no cyanosis, no edema. MUSCULOSKELETAL: Muscle bulk and tone appears symmetrical in comparing left lower extremity to right. He does walk with a slightly antalgic gait favoring the left lower extremity. He has no skin color changes or texture changes of the lower extremities concerning of complex regional pain syndrome. Deep tendon reflexes are equal and symmetrical. ASSESSMENT: 1. Chronic knee pain. 2. Chronic bilateral leg pain. 3. Jsosbgx-Yjfkxowwe-Ckyht syndrome. 4. Opioid dependency. 5. Opioid intolerance. 6. Chronic intractable pain. PLAN: 1. The patient returns today in followup visit requesting refill on medications at current dosing. He does have a change in insurance that is eminent, but he does not have any of the information of his new insurer and whether or not coverage for his previous used in the center is available. We will continue the patient on his OxyContin and oxycodone combination along with Trileptal for the next month. The patient will give us information about his new insurance and we will discuss the possibility of providing changes in medication management. I am not confident that Nucynta will be covered under his new insurance and will likely need prior authorizations whether or not this is something that can be done. We will remain to be seen based on the new insurer once he has this available to us. He will drop information by to assess quickly as possible. 2. The patient was provided prescription of OxyContin 15 mg dose 1 tab p.o. b.i.d. I have given the patient #60 tablets, no refills. Prescription was provided to the patient in written form. 3. The patient was provided prescription of oxycodone 5 mg dose 1 tab p.o. t.i.d., given the patient #90 tablets with no refills. The patient was advised to take the medication only when pain is intolerable, not to rely on the medication prophylactically. 4. The patient was given a prescription of Trileptal 300 mg dose 1 tab p.o. b.i.d. I have given the patient #60 tablets and no refills. 5. We will see the patient back in followup visit in 1 month for medication management. He will be dropping by information in regards to his new insurer whether or not they might cover his previously used Nucynta, which he received better benefit. We will discuss this at followup visit. <ELECTRONICALLY SIGNED> By: Francesco Pichardo DO 08/14/19 1546 0906 1004 Francesco Pichardo DO /sp
== END ==
LOC: PAIN 06:39
DX: M79.604 Pain in right leg (principal); M79.605 Pain in left leg; M25.569 Pain in unspecified knee; G89.4 Chronic pain syndrome; Q87.2 Congenital malformation syndromes predominantly involving limbs; F11.20 Opioid dependence, uncomplicated

== ENCOUNTER → 2019-10-09 | Outpatient (CLI) | payer OTHER ==
[~2019-10-09] VITALS: Ht 198.1 cm; Wt 84.7 kg
[2019-10-09 08:13] VITALS: BP 130/79
--- NOTE | 2019-10-09 08:24 | NUR ---
Pain Clinic Assessment: 1. History of Osteoarthritis: Left Lower Extremity Right Lower Extremity History of Rheumatoid Arthritis: Not Applicable 2. Height: 6 ft. 6 in. 198.1 cm. Weight: 186.8 lb. oz. 84.732 kg. Patient's BMI: 21.6 3. Vital Signs: BP: 130/79 Pulse: 62 Resp: 16 Temp: 02 Sat: 100 ECG Mon: 4. Pain Intensity: 4 5. Fall Risk: Dizziness: N Needs help standing or walking: N Fallen in the last 3 months: N Fall risk comments: 6. Patient on Blood Thinner: XARELTO 7. History of Hypertension: N 8. Opioid Therapy greater than 6 weeks: Y Opiate Contract Signed: 12/08/15 9. Risk Assessment Tool Provided: LOW RISK 0 10. Functional Assessment Tool: 11. Recreational Drug Use: Never Drug Type: Tobacco Use: Never Smoker Tobacco Type: Amount or Packs/day: How Many Years: Alcohol Use: No Frequency: Quant:
--- NOTE | 2019-10-09 14:17 | HPC ---
[facility] [place] [address] PAIN MANAGEMENT CONSULTATION Name: NELLY GUTIÉRREZ Room #: REG [facility].#: [id number] Admission: 10/09/19 Attend Phys: Dede Craig Discharge: Date of : 84 Report #: [id number] THIS REPORT FOR: cc: Elissa Patel MD, Jacquelyn MD Hocker,Dede ADAMS ~ CC: Francesco Pichardo DO DATE OF SERVICE: 10/09/2019 CHIEF COMPLAINT: Low back pain, bilateral leg pain. HISTORY OF PRESENT ILLNESS: This is a 39-year-old gentleman who returns to the pain clinic today for a medication refill. As you know, he has trialed several medications. 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 The patient did provide the clinic at the end of July his new insurance. The nurses obtained a prior authorization for his Nucynta and it was approved, so today he is here to continue that medication. He believes it is much more beneficial in controlling his leg and back pain. Today, he is reporting his pain score 4/10, which he describes as an aching, burning pain that is increased with too much activity as well as prolonged sitting and standing. He states that the medication as well as lying down are the most beneficial for him. He denies any problems with constipation as a result of his medication. 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 He feels that this will be beneficial with his pain as well. ALLERGIES: SULFA AND GADOLINIUM. CURRENT MEDICATIONS: Nucynta 50 mg p.r.n., Nucynta ER 100 mg b.i.d., Trileptal 300 mg b.i.d., Protonix, Xarelto, and multivitamin. PQRS: 1. He has osteoarthritis in his lower extremities bilaterally. Denies any rheumatoid arthritis. 2. Height is 6 feet 6 inches, weight is 186, BMI is 21. 3. Vital signs 130/79, pulse is 62, respirations 16, oxygen sat is 100. 4. Pain score is 04/10. 5. Denies dizziness, does not need help walking, standing or sitting. He has not fallen in the last 3 months. 6. The patient is on Xarelto. Does not take medicine for hypertension. His opioid therapy is greater than 6 weeks; therefore, an opioid signed contract is on the chart. Risk assessment tool is low. Functional assessment is 40/70. 7. Recreational drug use, he denies. He is not a smoker and does not drink alcohol. [address] [address] PAIN MANAGEMENT CONSULTATION Name: MARLANELLY M Room #: REG [facility]#: [id number] Admission: 10/09/19 Attend Phys: Dede Craig Discharge: Date of : 84 Report #: [id number] According to the prescription monitoring system, he recently filled his Nucynta on 09/20/2019, so he is due next week for this medication. He has only been filling medications from Dr. Francesco Pichardo. PHYSICAL EXAMINATION: GENERAL: This is alert and orientated 39-year-old who is well-developed, well-nourished, well-hydrated, rating his pain score today at 4/10. HEENT: Normocephalic, atraumatic. Pupils equal, round and reactive to light. He is a good historian and his speech is fluent. EXTREMITIES: No clubbing, no cyanosis, no edema. MUSCULOSKELETAL: Muscle strength and bulk is equal and symmetrical in his lower extremities. He does have a slightly antalgic gait. ASSESSMENT: 1. Chronic knee pain. 2. Chronic bilateral leg pain. 3. Ongauzf-Fmbfqgjdm-Hneny syndrome. 4. Opioid dependency. 5. Opioid intolerance. 6. Chronic intractable pain. We reviewed the fact that opiate medications are being used to provide analgesia adequate to support activities of daily living, not attempting to achieve a specific pain score on the 0-10 Visual Analog Scale. The current opiate medications are providing sufficient analgesia to allow the patient to participate in activities of daily living. The patient is not exhibiting any aberrant behavior suggestive of drug diversion. The patient is not having any adverse reactions to medications. The patient is not suffering from daytime somnolence or mental acuity changes. The patient is managing opiate-induced constipation with appropriate orrz-trd-sgkaagj agents and dietary considerations. The patient was counseled on concern for caution with operating a motor vehicle while using opiate medications. PLAN: 1. We discussed treatment options with the patient today. We will continue his Nucynta 50 mg t.i.d. and Nucynta ER 100 mg b.i.d. The patient finds that these are much more beneficial in controlling his pain than the OxyContin. His new insurance company is also willing to cover this medication. We will write these medicines for 3 months. 2. We will continue his Trileptal 300 mg b.i.d. as well. Scripts sent for 60 with 2 additional refills to his pharmacy. 3. The patient will return in 3 months. At that time, we will repeat his urine drug screen. It will have been greater than a year at that time. [facility] [address] [place] [address] PAIN MANAGEMENT CONSULTATION Name: NELLY GUTIÉRREZ Room #: REG [facility]#: [id number] Admission: 10/09/19 Attend Phys: Dede Craig Discharge: Date of : 84 Report #: [id number] The patient seen today in collaboration with Dr. Francesco Pichardo, who sent the medicines electronically. <ELECTRONICALLY SIGNED> By: Dede Craig 10/09/19 1417 0911 0944 Dede Craig /nt
== END ==
LOC: PAIN 06:46
DX: M54.5 Low back pain (principal); M79.604 Pain in right leg; M79.605 Pain in left leg; M25.569 Pain in unspecified knee; F11.20 Opioid dependence, uncomplicated; G89.29 Other chronic pain; Z88.2 Allergy status to sulfonamides; Z88.8 Allergy status to other drugs, medicaments and biological substances; Z79.899 Other long term (current) drug therapy

== ENCOUNTER → 2020-01-15 | Outpatient (CLI) | payer OTHER ==
[~2020-01-15] VITALS: Ht 198.1 cm; Wt 83.5 kg
[2020-01-15 10:07] VITALS: BP 129/78
--- NOTE | 2020-01-15 10:36 | NUR ---
Pain Clinic Assessment: 1. History of Osteoarthritis: Left Lower Extremity Right Lower Extremity History of Rheumatoid Arthritis: Not Applicable 2. Height: 6 ft. 6 in. 198.1 cm. Weight: 184.0 lb. oz. 83.462 kg. Patient's BMI: 21.3 3. Vital Signs: BP: 129/78 Pulse: 70 Resp: 14 Temp: 02 Sat: 98 ECG Mon: 4. Pain Intensity: 7 AVG 5. Fall Risk: Dizziness: N Needs help standing or walking: N Fallen in the last 3 months: N Fall risk comments: 6. Patient on Blood Thinner: XARELTO 7. History of Hypertension: N 8. Opioid Therapy greater than 6 weeks: Y Opiate Contract Signed: 12/08/15 9. Risk Assessment Tool Provided: LOW RISK 0 10. Functional Assessment Tool: 11. Recreational Drug Use: Never Drug Type: Tobacco Use: Never Smoker Tobacco Type: Amount or Packs/day: How Many Years: Alcohol Use: No Frequency: Quant:
--- NOTE | 2020-01-16 11:15 | HPC ---
[facility] [place] [address] PAIN MANAGEMENT CONSULTATION Name: NELLY GUTIÉRREZ [id number] Admission: 01/15/20 Attend Phys: Dede Craig Discharge: Date of : 84 Report #: [id number] THIS REPORT FOR: cc: Elissa Patel MD, Jacquelyn MD Hocker,Dede ADAMS ~ CC: Francesco Pichardo DO DATE OF SERVICE: 01/15/2020 CHIEF COMPLAINT: Low back pain, bilateral leg pain. HISTORY OF PRESENT ILLNESS: This is a 39-year-old male who returns to the pain clinic today for a refill of his opioid medications that he uses to help treat his ongoing low back pain and leg pain. Today, he is also complaining of some left shoulder pain. He states his pain score is 7/10, worse with activity, though he does continue to be very active, does rock climbing as well as exercises every day. He reports that he saw an orthopedic surgeon for left knee pain that has become more problematic as well as left shoulder pain. He has started using Voltaren gel on a more frequently basis. He is going to start physical therapy to learn strengthening exercises to help reduce some of this pain. He feels that the Nucynta extended release and short-acting are very beneficial in helping him be as active as he is able. He denies problems with constipation as a result of these medications. The patient states he continues to work at home. He is very happy with his new job that he started in June. He states he is having less stress than he had in the past and he believes this also aids in decreasing his overall pain. ALLERGIES: SULFA AND GADOLINIUM. CURRENT LIST OF MEDICATIONS: Diclofenac gel, Nucynta 50 mg t.i.d. p.r.n., Nucynta 100 mg ER b.i.d., Trileptal 300 mg b.i.d., Protonix, Xarelto, and multivitamin. PQRS: 1. He has osteoarthritic changes in his lower extremities. Denies rheumatoid arthritis. 2. Height is 6 feet 6 inches, weight is 184, BMI is 21. Vital signs 129/78, pulse is 70, respirations 14, oxygen sat is 98, pain score is 7/10. 3. Fall risk. Denies dizziness, does not need help walking or standing, he has not fallen in the last 3 months. 4. The patient remains on Xarelto. Does not take medicines for hypertension. His opioid therapy is greater than 6 weeks; therefore, an opioid signed contract is on the chart. Risk assessment is low. Functional assessment is 40/70. 5. Recreational drug use, he denies. He is not a smoker and does not drink [address] [address] PAIN MANAGEMENT CONSULTATION Name: NELLY GUTIÉRREZ Room #: REG CL Norma#: [id number] Admission: 01/15/20 Attend Phys: Dede Craig Discharge: Date of : 84 Report #: [id number] alcohol. According to the prescription monitoring system, the patient is filling appropriately. He is due this week to fill his medications. His morphine milliequivalent is above the CDC guidelines, but he is stable on these medications. We have tried numerous medicines in the past that have been ineffective in controlling his pain. We will check a random drug screen on this patient today. PHYSICAL EXAMINATION: GENERAL: This is alert and orientated, slightly anorexic 39-year-old gentleman who is rating his pain score at 7/10 today. HEENT: Normocephalic, atraumatic. Pupils equal, round and reactive to light. He is a good historian. His speech is fluent and he is wearing a mask. EXTREMITIES: No clubbing, no cyanosis, no edema. MUSCULOSKELETAL: Does complain of tenderness in his lumbar region that radiates into his legs. He has left knee pain today with no swelling noted in this joint. Also, has ongoing left shoulder pain, has slightly decreased range of motion in that shoulder. The range of motion does increase pain. His muscle strength and bulk is symmetrical in his upper and lower extremities at 5/5. ASSESSMENT: 1. Chronic knee pain. 2. Chronic bilateral leg pain. 3. Vzdsorp-Imskrsehs-Jjmhx syndrome. 4. Osteoarthritis. 5. Opioid dependency. 6. Opioid tolerance. 7. Complex medical management under terms of written opioid agreement. We reviewed the fact that opiate medications are being used to provide analgesia adequate to support activities of daily living, not attempting to achieve a specific pain score on the 0-10 Visual Analog Scale. The current opiate medications are providing sufficient analgesia to allow the patient to participate in activities of daily living. The patient is not exhibiting any aberrant behavior suggestive of drug diversion. The patient is not having any adverse reactions to medications. The patient is not suffering from daytime somnolence or mental acuity changes. The patient is managing opiate-induced constipation with appropriate umqj-uns-crkvrwt agents and dietary considerations. The patient was counseled on concern for caution with operating a motor vehicle while using opiate medications. A physical exam was performed and the patient's functional status was evaluated. All patients with back pain were advised against the bed rest greater than 4 days and were advised to return to normal activities. Pain score assessment was noted and the treatment plan was reviewed with the patient. All current [address] [place] [address] PAIN MANAGEMENT CONSULTATION Name: NELLY GUTIÉRREZ Room #: REG [facility].#: [id number] Admission: 01/15/20 Attend Phys: Dede BRYAN Craig Discharge: Date of : 84 Report #: [id number] medications, both prescribed and OTC were reviewed and reconciled on the electronic medical record. Tobacco screening was accomplished and smoking cessation was advised when indicated. BMI was noted and diet/exercise modification was recommended for all patients following outside normal parameters. I reviewed with the patient today their responsibilities to safeguard prescription medications, reviewed their responsibility to utilize medications only as prescribed by the physician. They are to seek and receive pain medications only from 1 physician group ( [facility]). They are to use 1 pharmacy and keep the clinic informed if they change pharmacies. Their responsibilities include making followup visits in a timely fashion and to avoid abrupt discontinuation of medication usage. Their responsibilities further include bringing their medications (bottles from the pharmacy with residual pills) to the visit for possible confirmation of pill counts and the patient understands it is their responsibility to submit to random drug screens to ensure both that the medications prescribed are present, and that no other controlled substances are present. All prescriptions provided today were generated electronically. PLAN: 1. We discussed treatment options with the patient today. He finds the Nucynta short-acting and long-acting beneficial in controlling most of his pain. We will continue these medications. He has very minimal side effects as a result of these medicines. Dr. Francesco Pichardo will send this electronically for Nucynta 100 mg ER b.i.d. for 3 months as well as his short-acting 50 mg tablets for 3 months. 2. We will continue him on the Trileptal 300 mg, #60 with 2 additional refills. 3. The patient states he is going to see physical therapy for his scapular left shoulder pain. I encouraged him to use his Voltaren gel 2-3 times a day as needed for that area as well as his knee pain. The patient states he has recently restarted this and has found it beneficial. He is unable to take oral nonsteroidal anti-inflammatory pills due to his Xarelto. 4. The patient provided us with a urine specimen for random drug screen today. 5. The patient is seen in collaboration with Dr. Francesco Pichardo. The patient will return in 3 months. <ELECTRONICALLY SIGNED> By: Dede Craig 01/16/20 1115 1102 1340 Dede Craig /nt
== END ==
LOC: PAIN 06:54
PROVIDERS: ATTEND Clinical Nurse Specialist Adult Health
DX: M25.562 Pain in left knee (principal); G89.29 Other chronic pain; M79.661 Pain in right lower leg; M79.662 Pain in left lower leg; M54.5 Low back pain; Q87.2 Congenital malformation syndromes predominantly involving limbs; M19.90 Unspecified osteoarthritis, unspecified site; Z79.891 Long term (current) use of opiate analgesic

== ENCOUNTER → 2020-04-15 | Outpatient (CLI) | payer OTHER ==
[~2020-04-15] VITALS: Ht 198.1 cm; Wt 85.8 kg
[2020-04-15 08:01] VITALS: BP 122/64
--- NOTE | 2020-04-16 07:47 | HPC ---
[facility] [place] [address] PAIN MANAGEMENT CONSULTATION Name: NELLY GUTIÉRREZ Room #: REG [facility].#: [id number] Admission: 04/15/20 Attend Phys: Dede Craig Discharge: Date of : 84 Report #: [id number] THIS REPORT FOR: cc: Elissa Patel MD, Jacquelyn MD Hocker,Ddee ADAMS ~ CC: Dede SOSA DO DATE OF SERVICE: 04/15/2020 CHIEF COMPLAINT: Low back pain, bilateral leg pain. HISTORY OF PRESENT ILLNESS: As you know, this is a 39-year-old gentleman who has been followed in the Pain Clinic for quite some time for his ongoing low back pain and leg pain. Today, he is reporting a pain score of 6/10, which he feels is slightly elevated and his pain has been increasing. Today, he is requesting an increase in his long-acting Nucynta. He states that he continues to have burning, aching pain in both his legs and back that is worse with any prolonged activity, though he does continue to be very active and does rock climbing. He feels that at nighttime his pain is especially worse. He denies any problems with constipation or daytime somnolence as a result of his medication. ALLERGIES: SULFA and IV DYE. CURRENT MEDICATIONS: Nucynta 50 mg t.i.d., Nucynta ER 100 mg b.i.d., Trileptal 300 mg b.i.d., Voltaren gel, Protonix, Xarelto, multivitamin. PQRS: 1. He does have diffuse osteoarthritis in his upper and lower extremities. He denies any rheumatoid arthritis. 2. Height is 6 feet 6 inches, weight is 189, BMI is 21. 3. Vital signs 122/64, pulse is 73, respirations 18, oxygen sat is 99%. 4. Pain score is 6/10. 5. Fall risk. Denies dizziness, has not fallen in the last 3 months. He is on Xarelto as well as no medicines for hypertension. His opioid therapy is greater than 6 weeks; therefore, an opioid signed contract is on the chart. Risk assessment is low. Functional assessment is 40/70. 6. Recreational drug use, he denies. He is not a smoker and does not drink alcohol. According to the prescription monitoring system, he is filling appropriate for his medications, though according to the CDC guidelines, he is on an extremely high level when we converted to morphine at 146. The patient reminded the [address] [address] PAIN MANAGEMENT CONSULTATION Name: NELLY GUTIÉRREZ Room #: REG [facility]..#: [id number] Admission: 04/15/20 Attend Phys: Dede Craig Discharge: Date of : 84 Report #: [id number] conversion factor in the CDC guidelines of 50-90 for chronic pain patients. There is an opioid drug screen on the chart that is appropriate for his medications. PHYSICAL EXAMINATION: GENERAL: This is alert and orientated 39-year-old gentleman who appears his stated age, placing his current pain score at 6/10. HEENT: Normocephalic, atraumatic. Pupils equal, round and reactive to light. EXTREMITIES: No clubbing, no cyanosis, no edema. MUSCULOSKELETAL: Range of motion in his left lower extremity is restricted from the knee. Pain is elicited with active and passive range of motion of his knee and lower extremity, though the muscle tone and bulk appear symmetrical. He has a mildly antalgic gait favoring his knee. He has tenderness in his lumbosacral region of his spine as well. ASSESSMENT: 1. Chronic knee pain. 2. Bilateral leg pain. 3. Wujdobd-Qzzvueacn-Fitnh syndrome. 4. Osteoarthritis. 5. Opioid dependency. 6. Opioid tolerance. 7. Complex medical management utilizing scheduled medications. We reviewed the fact that opiate medications are being used to provide analgesia adequate to support activities of daily living, not attempting to achieve a specific pain score on the 0-10 Visual Analog Scale. The current opiate medications are providing sufficient analgesia to allow the patient to participate in activities of daily living. The patient is not exhibiting any aberrant behavior suggestive of drug diversion. The patient is not having any adverse reactions to medications. The patient is not suffering from daytime somnolence or mental acuity changes. The patient is managing opiate-induced constipation with appropriate facm-vks-rtxxlji agents and dietary considerations. The patient was counseled on concern for caution with operating a motor vehicle while using opiate medications. PLAN: 1. We discussed treatment options with the patient today. He is requesting to increase his long-acting opioids. I explained to him in depth about the CDC guidelines and our attempting to keep people within these guidelines, though he is at a very high level at 146 per the conversion factor. We did discuss opioid rotation, which he has tried numerous drugs in the past and has not had good success controlling his pain with medicines of Xtampza, methadone, OxyContin. We did discuss an opioid holiday, which would be decreasing his medication significantly allowing him to readjust to his medications and then resuming him on his current dose or behavioral modification. The patient is willing to try [facility] [address] [place] [address] PAIN MANAGEMENT CONSULTATION Name: NELLY GUTIÉRREZ Room #: REG CLJosé Miguel Green#: [id number] Admission: 04/15/20 Attend Phys: Dede Craig Discharge: Date of : 84 Report #: [id number] the 3rd option. We will give him a brochure for the [facility] encouraging him to find other ways to deal with his pain other than taking medications. If this is not beneficial, we will attempt decreasing his meds in his next visit. 2. Scripts sent for Nucynta ER 100 mg b.i.d. and Nucynta 50 mg t.i.d., #[address] Francesco Sosa. I will send his Trileptal 300 mg, #60 with 2 additional refills. 3. We did talk about an injection used for osteoarthritis, Tanezumab. We had discussed this previously with the patient. When it comes on the market, the patient is very willing to try this new medication to see if this is beneficial. The patient is seen today in collaboration with Dr. Francesco Sosa. <ELECTRONICALLY SIGNED> By: Dede Craig 04/16/20 0747 [id number] 1832 Dede Craig /nt
== END ==
LOC: PAIN 06:44
PROVIDERS: ATTEND Clinical Nurse Specialist Adult Health
DX: M54.5 Low back pain (principal); Q87.2 Congenital malformation syndromes predominantly involving limbs; M19.90 Unspecified osteoarthritis, unspecified site; F11.20 Opioid dependence, uncomplicated; Z88.8 Allergy status to other drugs, medicaments and biological substances; Z79.899 Other long term (current) drug therapy

== ENCOUNTER → 2020-07-08 | Outpatient (CLI) | payer OTHER ==
[~2020-07-08] VITALS: Ht 198.1 cm; Wt 87.5 kg
[2020-07-08 08:07] VITALS: BP 118/50
--- NOTE | 2020-07-08 08:10 | NUR ---
Pain Clinic Assessment: 1. History of Osteoarthritis: Left Lower Extremity Right Lower Extremity History of Rheumatoid Arthritis: Not Applicable 2. Height: 6 ft. 6 in. 198.1 cm. Weight: 193.0 lb. oz. 87.544 kg. Patient's BMI: 22.3 3. Vital Signs: BP: 118/50 Pulse: 76 Resp: 14 Temp: 02 Sat: 97 ECG Mon: 4. Pain Intensity: 6 5. Fall Risk: Dizziness: N Needs help standing or walking: N Fallen in the last 3 months: N Fall risk comments: 6. Patient on Blood Thinner: XARELTO 7. History of Hypertension: N 8. Opioid Therapy greater than 6 weeks: Y Opiate Contract Signed: 12/08/15 9. Risk Assessment Tool Provided: LOW RISK 0 10. Functional Assessment Tool: 11. Recreational Drug Use: Never Drug Type: Tobacco Use: Never Smoker Tobacco Type: Amount or Packs/day: How Many Years: Alcohol Use: Yes Frequency: Weekly Quant:
--- NOTE | 2020-07-08 10:30 | HPC ---
[facility] [place] [address] PAIN MANAGEMENT CONSULTATION Name: NELLY GUTIÉRREZ Room #: REG [facility].#: [id number] Admission: 07/08/20 Attend Phys: Dede Craig Discharge: Date of : 84 Report #: [id number] THIS REPORT FOR: cc: Elissa Patel MD, Jacquelyn MD Hocker,Dede ADAMS ~ DATE OF SERVICE: 07/08/2020 CHIEF COMPLAINT: Low back pain, bilateral leg pain. HISTORY OF PRESENT ILLNESS: As you know, this is a 40-year-old gentleman who returns to the Pain Clinic for a followup for his ongoing low back pain and leg pain. He does suffer from Flyauht-Lfjokejlw-Kijco syndrome and osteoarthritis and finds that long-acting Nucynta very beneficial in helping control his pain. Today, he is reporting a pain score of 6/10, is an aching sensation that does have a burning component that is worse with prolonged standing and walking or activity. Overall, lying down as well as the medication gives him some relief. He denies constipation or daytime somnolence. The patient is asking about an injection of tanezumab is on the market yet. I did explain to him that we know that has been approved, but are still waiting for it to be marketed to us, so we are allowed to give that, this medication would take the place of his oral pain pills and treat his osteoarthritis and hopefully reduce his pain. He is hopeful that he may benefit much from that medication as he says his Nucynta. ALLERGIES: SULFA. CURRENT LIST OF MEDICATIONS: Nucynta 50 mg p.r.n., Nucynta ER 100 mg b.i.d., oxcarbazepine, Voltaren gel, Protonix, Xarelto, and multivitamin. PQRS: 1. He has diffuse osteoarthritis in his upper and lower extremities. Denies any rheumatoid arthritis. 2. Height is 6 feet 6 inches, weight is 193, BMI is 22. 3. Vital signs; blood pressure 118/50, pulse is 76, respirations 14, oxygen sat is 97%. 4. Pain score 6/10. 5. Denies dizziness, does not need help walking or standing, has not fallen in the last 3 months. 6. The patient remains on Xarelto and no medications for hypertension. 7. Opioid therapy is greater than 6 weeks; therefore, an opioid signed contract is on the chart. Risk assessment is low. Functional assessment is 40/70. 8. Recreational drug use, he denies. He is not a smoker and occasionally drinks alcohol. [address] [address] PAIN MANAGEMENT CONSULTATION Name: NELLY GUTIÉRREZ Room #: REG [facility] Green#: [id number] Admission: 07/08/20 Attend Phys: Dede Craig Discharge: Date of : 84 Report #: [id number] According to the prescription monitoring system, he is due to fill his medications next week, fills them in a timely fashion with no aberrant fills. There is a drug screen on the chart that is appropriate. We will collect a specimen at his next appointment. PHYSICAL EXAMINATION: GENERAL: This is alert and orientated 40-year-old gentleman who appears his stated age. He is a good historian, placing his current pain score at 6/10 today. HEENT: Normocephalic and atraumatic. Extraocular eye muscles are intact. He is wearing a mask. EXTREMITIES: No clubbing, no cyanosis, no edema. MUSCULOSKELETAL: Range of motion in his lower extremity is restricted to his knee pain is present with active and passive range of motion. His muscle tone and strength are equal and symmetrical in his lower extremities at 5/5. He does have tenderness in his lumbosacral region as well. ASSESSMENT: 1. Chronic knee pain. 2. Chronic bilateral leg pain. 3. Lokmsnf-Mheglycfd-Walci syndrome. 4. Osteoarthritis. 5. Opioid dependency. 6. Opioid tolerance. 7. Complex medical management under terms of written opioid agreement. PLAN: 1. We discussed treatment options with the patient today. The patient is interesting in obtaining the injection for osteoarthritis tanezumab when it becomes available in the market. We will let him know. In the meantime, we will continue him on his Nucynta 100 mg ER quantity 60 for today 4 and 8-week release as well as his short-acting Nucynta 50 mg 3 times a day. This will be sent electronically by Dr. Francesco Pichardo. 2. At his next visit, we will obtain a urine drug screen. 3. The patient is seen today in collaboration with Dr. Francesco Pichardo. <ELECTRONICALLY SIGNED> By: Dede Craig 07/08/20 1030 0 1 Dede Craig /sp
== END ==
LOC: PAIN 06:51
PROVIDERS: ATTEND Clinical Nurse Specialist Adult Health
DX: M54.5 Low back pain (principal); M79.604 Pain in right leg; M79.605 Pain in left leg; M19.90 Unspecified osteoarthritis, unspecified site; F11.20 Opioid dependence, uncomplicated; Q87.2 Congenital malformation syndromes predominantly involving limbs; M25.569 Pain in unspecified knee; Z79.899 Other long term (current) drug therapy; Z88.8 Allergy status to other drugs, medicaments and biological substances

== ENCOUNTER → 2020-09-30 | Outpatient (CLI) | payer OTHER ==
[~2020-09-30] VITALS: Ht 198.1 cm; Wt 90.5 kg
[2020-09-30 08:09] VITALS: BP 125/75
--- NOTE | 2020-09-30 08:17 | NUR ---
Pain Clinic Assessment: 1. History of Osteoarthritis: Left Lower Extremity Right Lower Extremity History of Rheumatoid Arthritis: Not Applicable 2. Height: 6 ft. 6 in. 198.1 cm. Weight: 199.6 lb. oz. 90.538 kg. Patient's BMI: 23.1 3. Vital Signs: BP: 125/75 Pulse: 68 Resp: 16 Temp: 02 Sat: 99 ECG Mon: 4. Pain Intensity: 6 5. Fall Risk: Dizziness: N Needs help standing or walking: N Fallen in the last 3 months: N Fall risk comments: 6. Patient on Blood Thinner: XARELTO 7. History of Hypertension: N 8. Opioid Therapy greater than 6 weeks: Y Opiate Contract Signed: 12/08/15 9. Risk Assessment Tool Provided: LOW RISK 0 10. Functional Assessment Tool: 11. Recreational Drug Use: Never Drug Type: Tobacco Use: Never Smoker Tobacco Type: Amount or Packs/day: How Many Years: Alcohol Use: Yes Frequency: Weekly Quant: 2
--- NOTE | 2020-10-06 07:48 | HPC ---
[facility] [place] [address] PAIN MANAGEMENT CONSULTATION Name: NELLY GUTIÉRREZ Room #: REG [facility].#: [id number] Admission: 09/30/20 Attend Phys: Dede Craig Discharge: Date of : 84 Report #: [id number] THIS REPORT FOR: cc: Elissa Patel MD, Jacquelyn MD Hocker,Dede ADAMS ~ DOC #: [id number] cc:Francesco Pichardo DO DATE OF SERVICE: 09/30/2020 CHIEF COMPLAINT: Low back pain, bilateral leg pain. HISTORY OF PRESENT ILLNESS: As you know, this is a 40-year-old gentleman who continues to have ongoing low back pain and leg pain as a result of Swjsfko-Tqjaxdmwc-Biziy syndrome and osteoarthritis. He continues to find his Nucynta extended release and short-acting beneficial in helping relieve a significant portion of his pain. Today, he rates his pain a 6/10 and describes his pain as an aching, burning sensation that is worse with activity and prolonged standing and walking. Aside from the medications being beneficial, he feels lying down is helpful as well. He denies any opioid-induced constipation or daytime somnolence. Today, he would like refills of his medication. The patient is wondering if the medication tanezumab is on the market yet. We did discuss this at his last visit. Unfortunately, since we saw him last, there was a setback. We did talk with Dr. Francesco Pichardo again today regarding this and he feels that it will be on the market soon with different indications, and the patient is hopeful for this. ALLERGIES: SULFA AND GADOLINIUM DYE. CURRENT LIST OF MEDICATIONS: Nucynta 50 mg t.i.d., Nucynta 100 mg extended release b.i.d., oxcarbazepine, Voltaren gel, Protonix, Xarelto, and multivitamin. PQRS: 1. He has lower extremity osteoarthritis and diffuse in his upper extremities as well. He denies any rheumatoid arthritis. Height is 6 feet 6 inches, weight is 199, BMI is 23. 2. Vital signs, blood pressure 125/75, pulse is 68, respirations 16, oxygen sat is 99%. 3. Pain score 6/10. 4. Denies dizziness, does not need help walking or standing, has not fallen in the last 3 months. 5. The patient is not on Xarelto. He does not take medicine for hypertension. His opioid therapy is greater than 6 weeks; therefore, [place] [address] PAIN MANAGEMENT CONSULTATION Name: NELLY GUTIÉRREZ Room #: REG [facility] Norma#: [id number] Admission: 09/30/20 Attend Phys: Dede Craig Discharge: Date of : 84 Report #: [id number] is on the chart. Risk assessment is low. Functional assessment is 40/70. 6. Recreational drug use, he denies. He is not a smoker and occasionally drinks alcohol. According to the prescription monitoring system, the patient is due to fill his medications next week, filling them in a timely fashion. His morphine milliequivalent is quite high due to conversion factor. We will collect a random drug screen on this patient today. PHYSICAL EXAMINATION: GENERAL: This is alert and oriented, well-developed, well-nourished 40-year-old gentleman who appears his stated age, rating his current pain score today at 6/10. He is a good historian. HEENT: Normocephalic, atraumatic. Extraocular eye muscles are intact. He is wearing a mask. EXTREMITIES: No clubbing, no cyanosis, no edema. MUSCULOSKELETAL: Pain is elicited with active and passive range of motion in his knees and lower extremities, though muscle bulk and tone are symmetrical. He has a mildly antalgic gait. Tenderness in his lumbosacral region of his spine as well. ASSESSMENT: 1. Chronic knee pain. 2. Chronic bilateral leg pain. 3. Yhfqalh-Kidnyvdui-Vpnqa syndrome. 4. Osteoarthritis. 5. Opioid dependency. 6. Opioid tolerant. 7. Complex medical management under scheduled opioid medications. We reviewed the fact that opiate medications are being used to provide analgesia adequate to support activities of daily living, not attempting to achieve a specific pain score on the 0-10 Visual Analog Scale. The current opiate medications are providing sufficient analgesia to allow the patient to participate in activities of daily living. The patient is not exhibiting any aberrant behavior suggestive of drug diversion. The patient is not having any adverse reactions to medications. The patient is not suffering from daytime somnolence or mental acuity changes. The patient is managing opiate-induced constipation with appropriate bhrk-ieb-ihrpakn agents and dietary considerations. The patient was counseled on concern for caution with operating a motor vehicle while using opiate medications. A physical exam was performed and the patient's functional status was evaluated. All patients with back pain were advised against the bed rest greater than 4 days and were advised to return to normal activities. Pain score assessment was noted and the treatment plan was reviewed with the patient. All current [facility] [address] [place] [address] PAIN MANAGEMENT CONSULTATION Name: NELLY GUTIÉRREZ Room #: REG [facility]#: [id number] Admission: 09/30/20 Attend Phys: Dede Craig Discharge: Date of : 84 Report #: [id number] medications, both prescribed and OTC were reviewed and reconciled on the electronic medical record. Tobacco screening was accomplished and smoking cessation was advised when indicated. BMI was noted and diet/exercise modification was recommended for all patients following outside normal parameters. I reviewed with the patient today their responsibilities to safeguard prescription medications, reviewed their responsibility to utilize medications only as prescribed by the physician. They are to seek and receive pain medications only from 1 physician group ( [facility]). They are to use 1 pharmacy and keep the clinic informed if they change pharmacies. Their responsibilities include making followup visits in a timely fashion and to avoid abrupt discontinuation of medication usage. Their responsibilities further include bringing their medications (bottles from the pharmacy with residual pills) to the visit for possible confirmation of pill counts and the patient understands it is their responsibility to submit to random drug screens to ensure both that the medications prescribed are present, and that no other controlled substances are present. All prescriptions provided today were generated electronically. PLAN: 1. We discussed treatment options with the patient today. He feels the Nucynta short and long-acting are beneficial in helping reduce his pain, though he is hopeful to have tanezumab injections when available. Unfortunately, we have learned since his last visit that it is prolonged in FDA approval and will not be on the market for some time, so we will continue him on his Nucynta. Scripts will be sent electronically by Dr. Francesco Pichardo today for Nucynta 100 mg ER to be released in 1 week, 5 weeks, and 9 weeks as well as his Nucynta 50 mg t.i.d. the same release dates. A coupon for a discount for his copay was also given to the patient today. 2. The patient is not needing his Trileptal fill today. He will need that refilled at his next visit, that does help with the burning sensation in his lower extremities. 3. We will collect a random drug screen on this patient today. The patient seen today in collaboration with Dr. Francesco Pichardo. Time spent with the patient in consultation, reviewing recent studies and clinical notes, physical exam and the correlation of findings and medical documentation to determine possible treatments, 16 minutes. Time spent preparing for appointment reviewing prescription monitoring system, reviewing previous records and proposed treatment options and current medications 5 minutes. Time spent preparing and sending electronic prescriptions with collaborating physician, Dr. Francesco Pichardo, and documentation of visit and plan of treatment, 5 minutes. Total time spent [address] [place] [address] PAIN MANAGEMENT CONSULTATION Name: MARLANELLY Bernadette Room #: REG [facility]#: [id number] Admission: 09/30/20 Attend Phys: Dede Craig Discharge: Date of : 84 Report #: [id number] PAM Concepcion <ELECTRONICALLY SIGNED> By: Dede Craig 10/06/20 [id number] [id number] Dede moe
== END ==
LOC: PAIN 07:17
PROVIDERS: ATTEND Clinical Nurse Specialist Adult Health
DX: M54.5 Low back pain (principal); M79.604 Pain in right leg; M79.605 Pain in left leg; M25.569 Pain in unspecified knee; M19.90 Unspecified osteoarthritis, unspecified site; F11.20 Opioid dependence, uncomplicated; F11.21 Opioid dependence, in remission; Q87.2 Congenital malformation syndromes predominantly involving limbs; Z88.8 Allergy status to other drugs, medicaments and biological substances; Z79.899 Other long term (current) drug therapy

== ENCOUNTER → 2021-01-13 | Outpatient (CLI) | payer OTHER ==
[~2021-01-13] VITALS: Ht 198.1 cm; Wt 86.3 kg
[2021-01-13 08:17] VITALS: BP 138/69
--- NOTE | 2021-01-13 08:23 | NUR ---
Pain Clinic Assessment: 1. History of Osteoarthritis: Left Lower Extremity Right Lower Extremity History of Rheumatoid Arthritis: Not Applicable 2. Height: 6 ft. 6 in. 198.1 cm. Weight: 190.2 lb. oz. 86.274 kg. Patient's BMI: 22.0 3. Vital Signs: BP: 138/69 Pulse: 74 Resp: 16 Temp: 02 Sat: 99 ECG Mon: 4. Pain Intensity: 3 5. Fall Risk: Dizziness: N Needs help standing or walking: N Fallen in the last 3 months: N Fall risk comments: 6. Patient on Blood Thinner: XARELTO 7. History of Hypertension: N 8. Opioid Therapy greater than 6 weeks: Y Opiate Contract Signed: 12/08/15 9. Risk Assessment Tool Provided: LOW RISK 0 10. Functional Assessment Tool: 11. Recreational Drug Use: Never Drug Type: Tobacco Use: Never Smoker Tobacco Type: Amount or Packs/day: How Many Years: Alcohol Use: Yes Frequency: Weekly Quant: 1 A DAY
--- NOTE | 2021-01-14 08:28 | HPC ---
[facility] [address] [place] [address] PAIN MANAGEMENT CONSULTATION Name: NELLY GUTIÉRREZ Room #: REG [facility].#: [id number] Admission: 01/13/21 Attend Phys: Dede Craig Discharge: Date of : 84 Report #: [id number] THIS REPORT FOR: cc: Elissa Patel MD, Jacquelyn MD Hocker,Dede ADAMS ~ cc: Francesco Pichardo DO DATE OF SERVICE: 01/13/2021 CHIEF COMPLAINT: Low back pain, bilateral leg pain. HISTORY OF PRESENT ILLNESS: This is a 40-year-old gentleman who continues to have pain associated with his Psrxixa-Jlzmkcedj-Smygd syndrome that affects his low back and legs bilaterally. He also has osteoarthritis. He continues to find his Nucynta beneficial in helping relieve his pain. Today, he is rating his pain at 3/10 today again located in his low back and bilateral legs. He is wearing a compression stocking on his left leg. He feels that that has been beneficial as well, especially when he travels. He feels that when his pain is at its worst is when he is active or standing and walking for a prolonged periods of time. He does continue to work out on a daily basis and finds this beneficial in helping reduce his pain as well as taking his Nucynta. Overall, he denies any constipation or daytime somnolence as a result of his opioid medications. Today, he would like refills of his opioids as well as his adjunct medications. ALLERGIES: SULFA AND GADOLINIUM. CURRENT MEDICATIONS: Nucynta ER 100 mg tablets b.i.d., Nucynta 50 mg t.i.d. p.r.n., oxcarbazepine 300 mg b.i.d., Voltaren gel, Protonix, Xarelto, and multivitamin. PQRS: 1. He has osteoarthritis in his lower extremities and his spine. Denies any rheumatoid arthritis. 2. Height is 6 feet 6 inches, weight is 190, BMI is 22. 3. Vital signs: 138/69, pulse is 74, respirations 16, oxygen sat is 99%. 4. Pain score is 3/10. 5. Denies dizziness, does not need help walking or standing, has not fallen in the last 3 months. 6. The patient remains on Xarelto and does not take any antihypertensive medications. 7. Opioid therapy is greater than 6 weeks; therefore, an opioid signed contract is on the chart. We will have him update this at his next visit. 8. Risk assessment is low. Functional assessment is 40/70. 9. Recreational drug use, he denies. He is not a smoker and occasionally drinks alcohol. [address] [address] PAIN MANAGEMENT CONSULTATION Name: NELLY GUTIÉRREZ Room #: REG [facility]#: [id number] Admission: 01/13/21 Attend Phys: Dede Craig Discharge: Date of : 84 Report #: [id number] According to the prescription monitoring system, he is filling appropriately in a timely fashion. His morphine milliequivalent according to the PDMP monitoring system is quite high at 135. His random drug screen that we collected at his last visit is appropriate for his medication. PHYSICAL EXAMINATION: GENERAL: This is alert and orientated 40-year-old gentleman who appears his stated age, rating his pain score today at 3/10. He is a good historian. HEENT: Normocephalic, atraumatic. Extraocular eye muscles are intact. He is wearing a mask. EXTREMITIES: No clubbing, no cyanosis, no edema. He does have a compression stocking on his left leg. MUSCULOSKELETAL: Tenderness in the lumbosacral region of his spine. Pain is elicited with active and passive range of motion of his knees and hips. Muscle bulk and tone are symmetrical and strength at 5/5. He has a slightly antalgic gait. ASSESSMENT: 1. Chronic knee pain. 2. Bilateral leg pain. 3. Xoqzzqr-Gssfpxffg-Xvpnc syndrome. 4. Osteoarthritis. 5. Opioid dependency. 6. Opioid tolerant. 7. Complex medical management utilizing scheduled opioid medications. We reviewed the fact that opiate medications are being used to provide analgesia adequate to support activities of daily living, not attempting to achieve a specific pain score on the 0-10 Visual Analog Scale. The current opiate medications are providing sufficient analgesia to allow the patient to participate in activities of daily living. The patient is not exhibiting any aberrant behavior suggestive of drug diversion. The patient is not having any adverse reactions to medications. The patient is not suffering from daytime somnolence or mental acuity changes. The patient is managing opiate-induced constipation with appropriate unzw-vda-facfael agents and dietary considerations. The patient was counseled on concern for caution with operating a motor vehicle while using opiate medications. A physical exam was performed and the patient's functional status was evaluated. All patients with back pain were advised against the bed rest greater than 4 days and were advised to return to normal activities. Pain score assessment was noted and the treatment plan was reviewed with the patient. All current medications, both prescribed and OTC were reviewed and reconciled on the electronic medical record. Tobacco screening was accomplished and smoking cessation was advised when indicated. BMI was noted and diet/exercise [address] [address] PAIN MANAGEMENT CONSULTATION Name: NELLY GUTIÉRREZ Room #: REG [facility]#: [id number] Admission: 01/13/21 Attend Phys: Dede Craig Discharge: Date of : 82 Report #: [id number] modification was recommended for all patients following outside normal parameters. I reviewed with the patient today their responsibilities to safeguard prescription medications, reviewed their responsibility to utilize medications only as prescribed by the physician. They are to seek and receive pain medications only from 1 physician group ( [facility]). They are to use 1 pharmacy and keep the clinic informed if they change pharmacies. Their responsibilities include making followup visits in a timely fashion and to avoid abrupt discontinuation of medication usage. Their responsibilities further include bringing their medications (bottles from the pharmacy with residual pills) to the visit for possible confirmation of pill counts and the patient understands it is their responsibility to submit to random drug screens to ensure both that the medications prescribed are present, and that no other controlled substances are present. All prescriptions provided today were generated electronically. PLAN: 1. We discussed treatment options with the patient today. The patient believes the Nucynta is beneficial in helping reduce his pain as well as keeping physically fit and active. We will continue him on these medications of Nucynta 100 mg ER b.i.d. and Nucynta 50 mg t.i.d. The patient instructed that there may be an issue with his supply chain and to make sure he leaves the pharmacy with all of his medications exact. Instructing him that we will send it 1 time to another pharmacy but will not send multiple scripts to fill his total of out. 2. We will also send medications for his oxcarbazepine 300 mg #60 with 5 additional refills. The patient finds this adjunct medication helpful with his leg pain. 3. The patient will return in 3 months. Time spent with the patient in consultation, reviewing recent studies and clinical notes, physical exam and correlation of findings and medical documentation to determine possible treatment options, 15 minutes. Time spent preparing for appointment, reviewing prescription monitoring system, reviewing previous records and proposed treatment options and current medications, 5 minutes. Time spent preparing and sending electronic prescriptions with collaborating physician, Dr. Francesco Pichardo, documentation of visit, 5 minutes. Total of time spen 25 minutes. <ELECTRONICALLY SIGNED> By: Dede Craig 01/14/2128 5 23 Dede Craig /nt
== END ==
LOC: PAIN 06:59
PROVIDERS: ATTEND Clinical Nurse Specialist Adult Health
DX: M79.605 Pain in left leg (principal); M79.604 Pain in right leg; G89.29 Other chronic pain; M25.561 Pain in right knee; M25.562 Pain in left knee; Q87.2 Congenital malformation syndromes predominantly involving limbs; M19.90 Unspecified osteoarthritis, unspecified site; Z79.891 Long term (current) use of opiate analgesic; Z79.899 Other long term (current) drug therapy

== ENCOUNTER → 2021-04-14 | Outpatient (CLI) | payer OTHER ==
[~2021-04-14] VITALS: Ht 198.1 cm; Wt 88.4 kg
[~2021-04-14] MED LIST changes: +NARCAN4 MG NARES
[2021-04-14 08:09] VITALS: BP 130/69
--- NOTE | 2021-04-14 08:16 | NUR ---
Pain Clinic Assessment: 1. History of Osteoarthritis: Left Lower Extremity Right Lower Extremity History of Rheumatoid Arthritis: Not Applicable 2. Height: 6 ft. 6 in. 198.1 cm. Weight: 194.8 lb. oz. 88.361 kg. Patient's BMI: 22.5 3. Vital Signs: BP: 130/69 Pulse: 79 Resp: 14 Temp: 02 Sat: 96 ECG Mon: 4. Pain Intensity: 5 5. Fall Risk: Dizziness: N Needs help standing or walking: N Fallen in the last 3 months: N Fall risk comments: 6. Patient on Blood Thinner: XARELTO 7. History of Hypertension: N 8. Opioid Therapy greater than 6 weeks: Y Opiate Contract Signed: 04/14/21 9. Risk Assessment Tool Provided: LOW RISK 0 10. Functional Assessment Tool: 11. Recreational Drug Use: Never Drug Type: Tobacco Use: Never Smoker Tobacco Type: Amount or Packs/day: How Many Years: Alcohol Use: Yes Frequency: Special Occasions Quant: 1
--- NOTE | 2021-04-15 08:14 | HPC ---
[facility] [place] [address] PAIN MANAGEMENT CONSULTATION Name: NELLY GUTIÉRREZ Room #: REG [facility].#: [id number] Admission: 04/14/21 Attend Phys: Dede Craig Discharge: Date of : 84 Report #: [id number] THIS REPORT FOR: cc: Elissa Patel MD,Elissa Craig,Dede ADAMS ~ cc: Elissa Patel DO, Francesco Pichardo DO DATE OF SERVICE: 04/14/2021 CHIEF COMPLAINT: Low back pain, bilateral leg pain. HISTORY OF PRESENT ILLNESS: This is a pleasant 40-year-old gentleman who returns to the Pain Clinic today for renewal of his opioid medications. He has pain associated with his Xnicjnr-Jwammeplr-Tnfne syndrome that affects his lower back and his bilateral legs. He describes significant burning sensation and aching in his legs, especially when he is overly active or does a significant amount of standing or walking. Today, he is rating his pain score 5/10, which is a fairly average number for him. He reports no constipation as a result of his opioids or no daytime somnolence. He believes the medication has been beneficial allowing him to be active as well as work, which requires him to travel with minimal pain. He also finds oxcarbazepine helpful with his burning sensation in his lower extremities. ALLERGIES: SULFA AND GADOLINIUM. CURRENT LIST OF MEDICATIONS: Trileptal 300 mg b.i.d., Nucynta 50 mg p.r.n., Nucynta 100 mg ER b.i.d., Voltaren gel p.r.n., Protonix, Xarelto, and multivitamin. PQRS: 1. He has osteoarthritic changes in his lower extremities. Denies any rheumatoid arthritis. Height is 6 feet 6 inches, weight is 194. BMI is 22. 2. Vital signs 130/69, pulse is 79, respirations 14, oxygen sat is 96%. 3. Pain score is 5/10. 4. Denies dizziness, does not need help walking or standing, has not fallen in the last 3 months. 5. The patient remains on Xarelto with no medications for hypertension. Opioid therapy is greater than 6 weeks. Therefore, his opioid signed contract we are renewing today. 6. Risk assessment is low. Functional assessment is 40/70. 7. Recreational drug use, he denies. He is not a smoker and occasionally drinks alcohol. According to the prescription monitoring system, the patient is filling appropriately. He is due to fill his medications this week. His morphine mEq according to the CDC guidelines is 144. There [place] [address] PAIN MANAGEMENT CONSULTATION Name: NELLY GUTIÉRREZ Room #: REG [facility]#: [id number] Admission: 04/14/21 Attend Phys: Dede Craig Discharge: Date of : 82 Report #: [id number] that is appropriate as well. PHYSICAL EXAMINATION: GENERAL: This is alert and orientated, pleasant 40-year-old who is well-developed, well-nourished, rating his pain score today a 5/10. HEENT: Normocephalic, atraumatic. Extraocular eye muscles are intact. He is wearing a mask for COVID precautions. MUSCULOSKELETAL: There is tenderness in the lumbosacral region that radiates into his legs bilaterally. Pain is elicited with active ROM in his legs. He has a slightly antalgic gait. IMPRESSION: 1. Chronic knee pain. 2. Bilateral leg pain. 3. Hplqptu-Dodhenzqf-Ymvsx syndrome. 4. Osteoarthritis. 5. Opioid dependency, opioid tolerant. 6. Complex medical management utilizing scheduled opioid medications. We reviewed the fact that opiate medications are being used to provide analgesia adequate to support activities of daily living, not attempting to achieve a specific pain score on the 0-10 Visual Analog Scale. The current opiate medications are providing sufficient analgesia to allow the patient to participate in activities of daily living. The patient is not exhibiting any aberrant behavior suggestive of drug diversion. The patient is not having any adverse reactions to medications. The patient is not suffering from daytime somnolence or mental acuity changes. The patient is managing opiate-induced constipation with appropriate wsyp-wyu-sfypayz agents and dietary considerations. The patient was counseled on concern for caution with operating a motor vehicle while using opiate medications. PLAN: 1. We discussed treatment options with the patient today. We are having the patient renew his opioid agreement. He has done this multiple times since we have started seeing him in 2012. Also, based on the patient's high morphine mEq number of 140, we will provide him with a prescription for Narcan. The insurance companies are encouraging the patients to have this medication in case of an emergency. I do not believe that he is at risk for overdose. He has been taking his medications appropriately, but nonetheless, we will prescribe this and he will teach family member how to use it. 2. We will continue him on Nucynta 100 mg ER, #60, for 3 months and Nucynta 50 mg, #90, for 3 months. These will be sent electronically to his pharmacy by Dr. Pichardo. 3. The patient is not needing his Trileptal 300 mg fill today. We will renew that at his next appointment. [facility] [address] [place] [address] PAIN MANAGEMENT CONSULTATION Name: NELLY GUTIÉRREZ Room #: REG [facility]#: [id number] Admission: 04/14/21 Attend Phys: Dede Craig Discharge: Date of : 84 Report #: [id number] Time spent with the patient in consultation, reviewing recent studies and clinical notes and physical exam and correlation of findings, medical documentation to determine possible treatment options, 15 minutes. Time spent preparing for appointment, reviewing prescription monitoring system, reviewing previous records and proposed treatment options and current medications, 5 minutes. Time spent preparing and sending electronic prescriptions with collaborating physician, Dr. Francesco Pichardo, and documentation of visit and plan of treatment, 5 minutes. Total time spent 25 minutes. <ELECTRONICALLY SIGNED> By: Dede Craig 04/15/21 0814 0807 0937 Dede Craig /sp
== END ==
LOC: PAIN 07:48
PROVIDERS: ATTEND Clinical Nurse Specialist Adult Health
DX: G89.29 Other chronic pain (principal); M54.50 Low back pain, unspecified; M79.604 Pain in right leg; M79.605 Pain in left leg; M25.569 Pain in unspecified knee; M19.90 Unspecified osteoarthritis, unspecified site; F11.20 Opioid dependence, uncomplicated; Z79.899 Other long term (current) drug therapy

== ENCOUNTER → 2021-07-07 | Outpatient (CLI) | payer OTHER ==
[~2021-07-07] VITALS: Ht 198.1 cm; Wt 89.4 kg
[2021-07-07 08:05] VITALS: BP 131/84
--- NOTE | 2021-07-07 08:08 | NUR ---
[facility] Assessment: 1. History of Osteoarthritis: Left Lower Extremity Right Lower Extremity History of Rheumatoid Arthritis: Not Applicable 2. Height: 6 ft. 6 in. 198.1 cm. Weight: 197.0 lb. oz. 89.359 kg. Patient's BMI: 22.8 3. Vital Signs: BP: 131/84 Pulse: 70 Resp: 16 Temp: 02 Sat: 98 ECG Mon: 4. Pain Intensity: 3 5. Fall Risk: Dizziness: N Needs help standing or walking: N Fallen in the last 3 months: N Fall risk comments: 6. Patient on Blood Thinner: XARELTO 7. History of Hypertension: N 8. Opioid Therapy greater than 6 weeks: Y Opiate Contract Signed: 04/14/21 9. Risk Assessment Tool Provided: LOW RISK 0 10. Functional Assessment Tool: 11. Recreational Drug Use: Never Drug Type: Tobacco Use: Never Smoker Tobacco Type: Amount or Packs/day: How Many Years: Alcohol Use: Yes Frequency: Quant:
== END ==
LOC: PAIN 06:48
PROVIDERS: ATTEND Clinical Nurse Specialist Adult Health
DX: Q87.2 Congenital malformation syndromes predominantly involving limbs (principal); M54.50 Low back pain, unspecified; M79.604 Pain in right leg; M79.605 Pain in left leg; M25.561 Pain in right knee; M25.562 Pain in left knee; F11.20 Opioid dependence, uncomplicated; Z79.899 Other long term (current) drug therapy; Z88.8 Allergy status to other drugs, medicaments and biological substances